=== PATIENT | male | born 1975 | race African-American/Black ===

== ENCOUNTER 2018-01-21 23:01 | Observation (INO) | payer SELFPAY ==
[~2018-01-21] VITALS: Ht 180.3 cm; Wt 72.8 kg
[2018-01-21 23:32] LABS: BASO % 0.6 % (0.0-2.0); EOS # 0.1 (0.0-0.7); EOS % 2.1 % (0-4.0); GRAN # 2.9 (1.4-6.5); GRAN % 62.2 % (42.2-75.2); HEMATOCRIT 37.3 % (42.0-52.0); HEMOGLOBIN 13.3 g/dl (13.5-18.0); LYMPH # 1.1 (1.2-3.4); LYMPH % 24.2 % (20.0-51.0); MEAN CELL VOLUME 84 fl (80.0-100.0); MEAN CORPUSCULAR HEMOGLOBIN 30 pg (27.0-31.0); MEAN CORPUSCULAR HGB CONC 36 g/dl (33.0-37.0); MEAN PLATELET VOLUME 9.9 fl (7.4-10.4); MONO # 0.5 (0.1-0.6); MONO % 10.7 % (1.7-9.3); PLATELET COUNT 248 K/mm3 (130-400); RED BLOOD COUNT 4.42 M/mm3 (4.20-5.60)
[2018-01-21 23:38] LABS: INR 0.9 (0.8-3.0); PROTHROMBIN TIME 10.4 SECONDS (9.7-12.8)
[2018-01-21 23:41] LABS: PARTIAL THROMBOPLASTIN TIME 33.4 SECONDS (26.0-37.0)
[2018-01-21 23:44] LABS: BILIRUBIN,TOTAL 0.8 mg/dL (0.0-1.0); CALCIUM 8.7 mg/dL (8.4-10.2); CREATININE, serum 0.83 mg/dL (0.66-1.25); MAGNESIUM 1.7 mg/dL (1.6-2.3); PHOSPHOROUS 3.6 mg/dL (2.5-4.5); POTASSIUM 3.4 mmol/L (3.4-5.0); TOTAL PROTEIN 7.3 gm/dL (6.4-8.2)
[2018-01-21 23:47] LABS: D-DIMER < 200.00 ng/mLDDu (200-230)
[2018-01-21 23:56] LABS: TROPONIN-I 0.022 ng/mL (0.000-0.034)
[2018-01-22] VITALS (10 sets, daily range): BP systolic 139–160; BP diastolic 94–110; PULSE 65–96; TEMP 97.8–98.7
[2018-01-22] LABS: PROLACTIN 7.6 ng/mL (3.7-17.9)
[2018-01-22 01:50] LABS: COLLECTION METHOD CLEAN CATCH
[2018-01-22 01:56] LABS: MUCOUS Present /lpf; PH 5 (5-8); SQUAMOUS EPITHELIAL 0-2 /hpf; URINE APPEARANCE Clear; URINE BACTERIA None Seen /hpf; URINE BILIRUBIN Negative (NEGATIVE); URINE BLOOD 1+ (NEGATIVE); URINE COLOR Yellow; URINE GLUCOSE Negative (NEGATIVE); URINE KETONE 1+ (NEGATIVE); URINE LEUKOCYTE ESTERASE Trace (NEGATIVE); URINE NITRATE Negative (NEGATIVE); URINE PROTEIN(semi-quant) 1+ (NEGATIVE); URINE RBC 0-2 /hpf; URINE UROBILINOGEN >=4.0 mg/dL (NEGATIVE)
[2018-01-22 02:03] LABS: TRICYCLIC ANTIDEPRESS URINE NEGATIVE
[2018-01-22 06:38] LABS: BASO % 0.9 % (0.0-2.0); EOS # 0.1 (0.0-0.7); EOS % 2.9 % (0-4.0); GRAN # 1.9 (1.4-6.5); GRAN % 42.8 % (42.2-75.2); HEMATOCRIT 37.4 % (42.0-52.0); HEMOGLOBIN 13.3 g/dl (13.5-18.0); LYMPH # 1.6 (1.2-3.4); LYMPH % 36.2 % (20.0-51.0); MEAN CELL VOLUME 84 fl (80.0-100.0); MEAN CORPUSCULAR HEMOGLOBIN 30 pg (27.0-31.0); MEAN CORPUSCULAR HGB CONC 36 g/dl (33.0-37.0); MEAN PLATELET VOLUME 10.7 fl (7.4-10.4); MONO # 0.8 (0.1-0.6); MONO % 17.2 % (1.7-9.3); PLATELET COUNT 251 K/mm3 (130-400); RED BLOOD COUNT 4.45 M/mm3 (4.20-5.60); REDCELL DISTRIBUTION WIDTH-CV 15.2 % (11.5-14.5)
[2018-01-22 06:48] LABS: CALCIUM 8.3 mg/dL (8.4-10.2); CHOLESTEROL RISK RATIO 2.9; CREATININE, serum 0.84 mg/dL (0.66-1.25); POTASSIUM 3.3 mmol/L (3.4-5.0)
[2018-01-22 06:59] LABS: TROPONIN-I 0.017 ng/mL (0.000-0.034)
[2018-01-23 07:49] VITALS: BP 154/104; PULSE 75; TEMP 98.9
[2018-01-23] MEDS ORDERED: PRINIVIL10 MG PO (10:50)
== END 2018-01-23 12:15 | disposition home or self-care (01) ==
LOC: COL.ER 23:01 → MEDICAL 01-22 00:31
PROVIDERS: Emergency Medicine; Nurse Practitioner Family
DX: R55 Syncope and collapse (principal); I10 Essential (primary) hypertension; I50.30 Unspecified diastolic (congestive) heart failure; E87.6 Hypokalemia; E86.0 Dehydration; E83.42 Hypomagnesemia; N39.0 Urinary tract infection, site not specified; Z79.82 Long term (current) use of aspirin; Z83.3 Family history of diabetes mellitus
CPT/HCPCS: 99223-AI; A9502; G0378; J0696; J1650; J2270; J2785; J3475; J3480; J7030

== ENCOUNTER 2018-12-11 10:50 | Emergency (ER) | payer SELFPAY ==
[~2018-12-11] VITALS: Ht 180.3 cm; Wt 79.5 kg
[~2018-12-11 10:50] MED LIST: PRINIVIL10 MG PO
[2018-12-11 10:53] VITALS: TEMP 98.6
[2018-12-11 11:19] LABS: BASO % 0.6 % (0.0-2.0); EOS # 0.1 (0.0-0.7); EOS % 0.8 % (0-4.0); GRAN # 4.7 (1.4-6.5); GRAN % 74.6 % (42.2-75.2); HEMATOCRIT 37.9 % (42.0-52.0); HEMOGLOBIN 13.1 g/dl (13.5-18.0); LYMPH # 0.9 (1.2-3.4); LYMPH % 14.6 % (20.0-51.0); MEAN CELL VOLUME 89 fl (80.0-100.0); MEAN CORPUSCULAR HEMOGLOBIN 31 pg (27.0-31.0); MEAN CORPUSCULAR HGB CONC 35 g/dl (33.0-37.0); MEAN PLATELET VOLUME 10.7 fl (7.4-10.4); MONO # 0.6 (0.1-0.6); MONO % 9.2 % (1.7-9.3); PLATELET COUNT 237 K/mm3 (130-400); RED BLOOD COUNT 4.25 M/mm3 (4.20-5.60); REDCELL DISTRIBUTION WIDTH-CV 15.1 % (11.5-14.5)
[2018-12-11 11:33] LABS: ALANINE AMINOTRANSFERASE 57 U/L (21-72); ALBUMIN 4.4 gm/dL (3.5-5.0); ALKALINE PHOSPHATASE 53 U/L (50-136); ANION GAP 12 mmol/L (7-16); AST,SGOT 114 U/L (15-37); BILIRUBIN,TOTAL 1.1 mg/dL (0.0-1.0); BLOOD UREA NITROGEN 12 mg/dL (9-20); CALCIUM 9.4 mg/dL (8.4-10.2); CARBON DIOXIDE 26 mmol/L (22-30); CHLORIDE 102 mmol/L (98-107); CREATININE, serum 0.75 (0.66-1.25); GLUCOSE 99 mg/dL (74-106); LIPASE 120 U/L (23-300); MAGNESIUM 1.5 mg/dL (1.6-2.3); POTASSIUM 4.3 mmol/L (3.4-5.0); SODIUM 141 mmol/L (137-145); TOTAL PROTEIN 8.1 gm/dL (6.4-8.2)
[2018-12-11 11:38] LABS: ALCOHOL(ethanol),MEDICAL < 10 mg/dL; C-REACTIVE PROTEIN < 0.5 mg/dL (0.0-0.9)
[2018-12-11 11:43] LABS: TROPONIN-I < 0.012 ng/mL (0.000-0.035)
[2018-12-11 12:26] LABS: TRICYCLIC ANTIDEPRESS URINE NEGATIVE
[2018-12-11 19:59] VITALS: BP 124/83; PULSE 90
== END 2018-12-11 20:14 | disposition short-term general hospital (02) ==
LOC: COL.ER 10:50
PROVIDERS: Emergency Medicine
DX: I77.79 Dissection of other specified artery (principal); R07.9 Chest pain, unspecified; F12.10 Cannabis abuse, uncomplicated
CPT/HCPCS: J3475; J7050; Q9967

== ENCOUNTER 2018-12-26 03:37 | Emergency (ER) | payer SELFPAY ==
[~2018-12-26] VITALS: Ht 180.3 cm; Wt 77.3 kg
[2018-12-26 03:58] LABS: BASO % 0.6 % (0.0-2.0); EOS # 0.1 (0.0-0.7); EOS % 2.3 % (0-4.0); GRAN # 3.1 (1.4-6.5); GRAN % 50.7 % (42.2-75.2); HEMATOCRIT 39.8 % (42.0-52.0); HEMOGLOBIN 13.8 g/dl (13.5-18.0); LYMPH % 33.1 % (20.0-51.0); MEAN CELL VOLUME 89 fl (80.0-100.0); MEAN CORPUSCULAR HEMOGLOBIN 31 pg (27.0-31.0); MEAN CORPUSCULAR HGB CONC 35 g/dl (33.0-37.0); MEAN PLATELET VOLUME 10.4 fl (7.4-10.4); MONO # 0.8 (0.1-0.6); PLATELET COUNT 242 K/mm3 (130-400); RED BLOOD COUNT 4.46 M/mm3 (4.20-5.60); REDCELL DISTRIBUTION WIDTH-CV 14.4 % (11.5-14.5)
[2018-12-26 04:09] LABS: ALANINE AMINOTRANSFERASE 44 U/L (21-72); ALBUMIN 4.6 gm/dL (3.5-5.0); ALCOHOL(ethanol),MEDICAL 117 mg/dL; ALKALINE PHOSPHATASE 62 U/L (50-136); ANION GAP 19 mmol/L (7-16); AST,SGOT 72 U/L (15-37); BILIRUBIN,TOTAL 0.3 mg/dL (0.0-1.0); BLOOD UREA NITROGEN 13 mg/dL (9-20); CARBON DIOXIDE 22 mmol/L (22-30); CHLORIDE 102 mmol/L (98-107); CREATININE, serum 0.97 (0.66-1.25); GLUCOSE 95 mg/dL (74-106); LIPASE 395 U/L (23-300); MAGNESIUM 1.9 mg/dL (1.6-2.3); SODIUM 143 mmol/L (137-145); TOTAL PROTEIN 8.5 gm/dL (6.4-8.2)
[2018-12-26 04:24] LABS: TROPONIN-I < 0.012 ng/mL (0.000-0.035)
[2018-12-26 07:30] VITALS: BP 152/93; PULSE 94; TEMP 97.8
[2018-12-26] MEDS ORDERED: MOBIC 7.5MG7.5 MG PO (07:32)
== END 2018-12-26 08:10 | disposition home or self-care (01) ==
LOC: COL.ER 03:37
PROVIDERS: Emergency Medicine
DX: R07.89 Other chest pain (principal); I10 Essential (primary) hypertension; Z87.891 Personal history of nicotine dependence

== ENCOUNTER 2019-10-10 05:38 | Emergency (ER) | payer SELFPAY ==
[~2019-10-10] VITALS: Ht 180.3 cm; Wt 81.8 kg
[~2019-10-10 05:38] MED LIST changes: +MOBIC 7.5MG7.5 MG PO
[2019-10-10 05:42] VITALS: TEMP 97.8
[2019-10-10 06:01] LABS: BASO # 0.1 (0.0-0.2); BASO % 0.7 % (0.0-2.0); EOS # 0.1 (0.0-0.7); EOS % 1.4 % (0-4.0); GRAN # 3.2 (1.4-6.5); GRAN % 44.2 % (42.2-75.2); HEMATOCRIT 41.9 % (42.0-52.0); HEMOGLOBIN 14.5 g/dl (13.5-18.0); LYMPH # 2.7 (1.2-3.4); MEAN CELL VOLUME 89 fl (80.0-100.0); MEAN CORPUSCULAR HEMOGLOBIN 31 pg (27.0-31.0); MEAN CORPUSCULAR HGB CONC 35 g/dl (33.0-37.0); MEAN PLATELET VOLUME 11.6 fl (7.4-10.4); MONO # 1.2 (0.1-0.6); PLATELET COUNT 205 K/mm3 (130-400); RED BLOOD COUNT 4.69 M/mm3 (4.20-5.60); REDCELL DISTRIBUTION WIDTH-CV 15.6 % (11.5-14.5)
[2019-10-10 06:08] LABS: ALKALINE PHOSPHATASE 78 U/L (50-136); ANION GAP 26 mmol/L (7-16); AST,SGOT 250 U/L (15-37); BILIRUBIN,TOTAL 0.8 mg/dL (0.0-1.0); BLOOD UREA NITROGEN 9 mg/dL (9-20); CALCIUM 9.7 mg/dL (8.4-10.2); CHLORIDE 97 mmol/L (98-107); CREATININE, serum 0.85 (0.66-1.25); GLUCOSE 131 mg/dL (74-106); POTASSIUM 3.7 mmol/L (3.4-5.0); SODIUM 137 mmol/L (137-145); TOTAL PROTEIN 9.1 gm/dL (6.4-8.2)
[2019-10-10 06:10] LABS: ALCOHOL(ethanol),MEDICAL < 10 mg/dL; CARBON DIOXIDE 14 mmol/L (22-30)
[2019-10-10 06:14] LABS: ALANINE AMINOTRANSFERASE 147 U/L (4-49)
[2019-10-10 06:59] LABS: ACETONE,SERUM NEGATIVE
[2019-10-10 07:29] LABS: OSMOLALITY-SERUM 296 Osm/kg (275-300)
[2019-10-10 08:10] LABS: ALBUMIN 4.2 gm/dL (3.5-5.0); BILIRUBIN,TOTAL 0.7 mg/dL (0.0-1.0); CALCIUM 8.8 mg/dL (8.4-10.2); CREATININE, serum 0.71 (0.66-1.25); POTASSIUM 4.2 mmol/L (3.4-5.0); TOTAL PROTEIN 7.7 gm/dL (6.4-8.2)
[2019-10-10 08:15] LABS: COLLECTION METHOD CLEAN CATCH
[2019-10-10 08:23] LABS: PROLACTIN 23.4 ng/mL (3.7-17.9)
[2019-10-10 08:33] LABS: AMORPHOUS CRYSTAL Present /uL; MUCOUS Present /lpf; PH 5 (5-8); SQUAMOUS EPITHELIAL 0-2 /hpf; URINE APPEARANCE Cloudy; URINE BACTERIA None Seen /hpf; URINE BILIRUBIN Negative (NEGATIVE); URINE BLOOD 3+ (NEGATIVE); URINE COLOR Yellow; URINE GLUCOSE Negative (NEGATIVE); URINE KETONE 1+ (NEGATIVE); URINE LEUKOCYTE ESTERASE Trace (NEGATIVE); URINE NITRATE Negative (NEGATIVE); URINE PROTEIN(semi-quant) 2+ (NEGATIVE); URINE RBC 0-2 /hpf; URINE UROBILINOGEN >=4.0 mg/dL (NEGATIVE)
[2019-10-10] MEDS ORDERED: OMNICEF 300MG300 MG PO (08:57)
[2019-10-10 09:11] LABS: TRICYCLIC ANTIDEPRESS URINE NEGATIVE
[2019-10-10 09:12] LABS: CREATINE KINASE 679 U/L (55-170)
[2019-10-10 09:15] LABS: SALICYLATE < 1.0 mg/dL
[2019-10-10] MEDS ORDERED: LIBRIUM 25M25 MG/CAP PO ×2 (09:17→10:17)
[2019-10-10 09:52] VITALS: BP 150/105; PULSE 88
== END 2019-10-10 10:34 | disposition home or self-care (01) ==
LOC: COL.ER 05:38
PROVIDERS: Emergency Medicine
DX: R56.9 Unspecified convulsions (principal)
CPT/HCPCS: J0696; J2060; J7030

== ENCOUNTER 2020-02-03 11:10 | Emergency (ER) | payer OTHER ==
[~2020-02-03] VITALS: Ht 180.3 cm; Wt 86.4 kg
[~2020-02-03 11:10] MED LIST changes: +LIBRIUM 25M25 MG/CAP PO; +OMNICEF 300MG300 MG PO
[2020-02-03 11:13] VITALS: BP 155/127; TEMP 97.8
[2020-02-03 11:26] LABS: BASO % 0.2 % (0.0-2.0); EOS % 0.2 % (0-4.0); GRAN % 71.4 % (42.2-75.2); HEMATOCRIT 38.1 % (42.0-52.0); HEMOGLOBIN 13.1 g/dl (13.5-18.0); LYMPH # 1.7 (1.2-3.4); LYMPH % 17.8 % (20.0-51.0); MEAN CELL VOLUME 91 fl (80.0-100.0); MEAN CORPUSCULAR HEMOGLOBIN 31 pg (27.0-31.0); MEAN CORPUSCULAR HGB CONC 34 g/dl (33.0-37.0); MEAN PLATELET VOLUME 10.4 fl (7.4-10.4); MONO % 9.8 % (1.7-9.3); PLATELET COUNT 184 K/mm3 (130-400); RED BLOOD COUNT 4.18 M/mm3 (4.20-5.60); REDCELL DISTRIBUTION WIDTH-CV 14.4 % (11.5-14.5)
[2020-02-03 11:35] LABS: ALBUMIN 4.1 gm/dL (3.5-5.0); BILIRUBIN,TOTAL 1.1 mg/dL (0.0-1.0); CREATININE, serum 0.7 (0.66-1.25); POTASSIUM 3.7 mmol/L (3.4-5.0); TOTAL PROTEIN 7.6 gm/dL (6.4-8.2)
[2020-02-03 11:51] LABS: PROLACTIN 73.7 ng/mL (3.7-17.9)
[2020-02-03] MEDS ORDERED: KEPPRA 500MG500 MG PO (14:42)
[2020-02-03 16:31] LABS: COLLECTION METHOD CLEAN CATCH
[2020-02-03 16:38] LABS: MUCOUS Present /lpf; PH 6 (5-8); SQUAMOUS EPITHELIAL 0-2 /hpf; URINE APPEARANCE Clear; URINE BACTERIA None Seen /hpf; URINE BILIRUBIN Negative (NEGATIVE); URINE BLOOD 1+ (NEGATIVE); URINE COLOR Yellow; URINE GLUCOSE 2+ (NEGATIVE); URINE KETONE 1+ (NEGATIVE); URINE LEUKOCYTE ESTERASE Negative (NEGATIVE); URINE NITRATE Negative (NEGATIVE); URINE PROTEIN(semi-quant) Negative (NEGATIVE); URINE RBC 0-2 /hpf; URINE UROBILINOGEN >=4.0 mg/dL (NEGATIVE)
[2020-02-03 16:49] LABS: TRICYCLIC ANTIDEPRESS URINE NEGATIVE
[2020-02-03 18:35] VITALS: PULSE 102
== END 2020-02-03 18:43 | disposition home or self-care (01) ==
LOC: COL.ER 11:10
PROVIDERS: Emergency Medicine; Family Medicine
DX: S01.81XA Laceration without foreign body of other part of head, initial encounter (principal); S06.320A Contusion and laceration of left cerebrum without loss of consciousness, initial encounter; R56.9 Unspecified convulsions; R40.2412 Glasgow coma scale score 13-15, at arrival to emergency department; F17.210 Nicotine dependence, cigarettes, uncomplicated; W06.XXXA Fall from bed, initial encounter; Y92.149 Unspecified place in prison as the place of occurrence of the external cause
CPT/HCPCS: J1200; J1790; J1953; J2250

== ENCOUNTER 2020-02-10 20:29 | Emergency (ER) | payer OTHER ==
[~2020-02-10] VITALS: Ht 180.3 cm; Wt 77.3 kg
[2020-02-10 20:36] VITALS: TEMP 98.1
[2020-02-10 21:19] VITALS: BP 133/84; PULSE 105
== END 2020-02-10 21:32 | disposition home or self-care (01) ==
LOC: COL.ER 20:29
DX: M75.102 Unspecified rotator cuff tear or rupture of left shoulder, not specified as traumatic (principal); S80.02XA Contusion of left knee, initial encounter; W06.XXXA Fall from bed, initial encounter

== ENCOUNTER → 2020-02-10 | Outpatient (CLI) | payer OTHER ==
[~2020-02-10] VITALS: Ht 180.3 cm; Wt 77.3 kg
[~2020-02-10] MED LIST changes: +KEPPRA 500MG500 MG PO
[2020-02-10 20:27] VITALS: PULSE 113; TEMP 98.1
== END ==
LOC: COL.ER 20:18
DX: S01.81XD Laceration without foreign body of other part of head, subsequent encounter (principal); M79.602 Pain in left arm; R56.9 Unspecified convulsions; W17.89XD Other fall from one level to another, subsequent encounter

== ENCOUNTER 2020-02-26 16:52 | Emergency (ER) | payer SELFPAY ==
[~2020-02-26] VITALS: Ht 180.3 cm; Wt 81.8 kg
[2020-02-26 17:03] VITALS: TEMP 98.2
[2020-02-26 18:12] LABS: BASO % 0.4 % (0.0-2.0); EOS # 0.2 (0.0-0.7); EOS % 3.1 % (0-4.0); GRAN # 2.4 (1.4-6.5); GRAN % 49.9 % (42.2-75.2); HEMOGLOBIN 10.9 g/dl (13.5-18.0); LYMPH # 1.6 (1.2-3.4); LYMPH % 33.7 % (20.0-51.0); MEAN CELL VOLUME 91 fl (80.0-100.0); MEAN CORPUSCULAR HEMOGLOBIN 31 pg (27.0-31.0); MEAN CORPUSCULAR HGB CONC 34 g/dl (33.0-37.0); MONO # 0.6 (0.1-0.6); MONO % 12.5 % (1.7-9.3); PLATELET COUNT 269 K/mm3 (130-400); RED BLOOD COUNT 3.49 M/mm3 (4.20-5.60); REDCELL DISTRIBUTION WIDTH-CV 15.2 % (11.5-14.5)
[2020-02-26 18:15] LABS: HEMATOCRIT 31.9 % (42.0-52.0)
[2020-02-26 18:32] LABS: ALBUMIN 3.7 gm/dL (3.5-5.0); BILIRUBIN,TOTAL 0.3 mg/dL (0.0-1.0); CALCIUM 8.3 mg/dL (8.4-10.2); CREATININE, serum 0.78 (0.66-1.25); POTASSIUM 3.2 mmol/L (3.4-5.0); TOTAL PROTEIN 6.9 gm/dL (6.4-8.2)
[2020-02-26 18:48] LABS: PROLACTIN 20.5 ng/mL (3.7-17.9)
[2020-02-26 19:24] VITALS: BP 121/81; PULSE 106
== END 2020-02-26 19:35 | disposition home or self-care (01) ==
LOC: COL.ER 16:52
PROVIDERS: Emergency Medicine
DX: R56.9 Unspecified convulsions (principal); M62.81 Muscle weakness (generalized)

== ENCOUNTER 2020-05-06 16:35 | Emergency (ER) | payer SELFPAY ==
[~2020-05-06] VITALS: Ht 180.3 cm; Wt 86.4 kg
[2020-05-06 16:52] VITALS: TEMP 98.1
[2020-05-06] MEDS ORDERED: KEPPRA 500MG500 MG PO (18:35)
[2020-05-06 18:47] VITALS: BP 133/92; PULSE 88
== END 2020-05-06 19:00 | disposition home or self-care (01) ==
LOC: COL.ER 16:35
DX: G40.909 Epilepsy, unspecified, not intractable, without status epilepticus (principal); Z79.2 Long term (current) use of antibiotics

== ENCOUNTER 2020-07-08 00:45 | Emergency (ER) | payer SELFPAY ==
[~2020-07-08] VITALS: Ht 180.3 cm; Wt 81.8 kg
[2020-07-08 00:46] VITALS: TEMP 98.3
[2020-07-08 01:03] LABS: BASO % 0.5 % (0.0-2.0); EOS % 0.7 % (0-4.0); GRAN # 3.3 (1.4-6.5); GRAN % 57.3 % (42.2-75.2); HEMATOCRIT 32.2 % (42.0-52.0); HEMOGLOBIN 11.5 g/dl (13.5-18.0); LYMPH # 1.5 (1.2-3.4); LYMPH % 27.1 % (20.0-51.0); MEAN CELL VOLUME 87 fl (80.0-100.0); MEAN CORPUSCULAR HEMOGLOBIN 31 pg (27.0-31.0); MEAN CORPUSCULAR HGB CONC 36 g/dl (33.0-37.0); MEAN PLATELET VOLUME 11.5 fl (7.4-10.4); MONO # 0.8 (0.1-0.6); MONO % 13.9 % (1.7-9.3); PLATELET COUNT 167 K/mm3 (130-400); REDCELL DISTRIBUTION WIDTH-CV 14.6 % (11.5-14.5)
[2020-07-08 01:16] LABS: ALBUMIN 4.1 gm/dL (3.5-5.0); BILIRUBIN,TOTAL 0.5 mg/dL (0.0-1.0); C-REACTIVE PROTEIN 0.6 mg/dL (0.0-0.9); CALCIUM 8.8 mg/dL (8.4-10.2); CREATININE, serum 0.89 (0.66-1.25); POTASSIUM 4.2 mmol/L (3.4-5.0); TOTAL PROTEIN 7.5 gm/dL (6.4-8.2)
[2020-07-08 01:29] LABS: PROLACTIN 16.9 ng/mL (3.7-17.9)
[2020-07-08 03:24] VITALS: BP 126/78; PULSE 80
== END 2020-07-08 03:24 | disposition home or self-care (01) ==
LOC: COL.ER 00:45
PROVIDERS: Nurse Practitioner
DX: G40.409 Other generalized epilepsy and epileptic syndromes, not intractable, without status epilepticus (principal); Z91.14 Patient's other noncompliance with medication regimen
CPT/HCPCS: J1953; J7030

== ENCOUNTER 2020-08-22 19:57 | Emergency (ER) | payer SELFPAY ==
[~2020-08-22] VITALS: Ht 180.3 cm; Wt 77.3 kg
[2020-08-22] MEDS ORDERED: FIRST-MOUTHWASH1 KIT PO (22:11)
[2020-08-22 22:17] VITALS: BP 149/89; PULSE 94; TEMP 98.2
== END 2020-08-22 22:18 | disposition home or self-care (01) ==
LOC: COL.ER 19:57
DX: S01.512A Laceration without foreign body of oral cavity, initial encounter (principal); R56.9 Unspecified convulsions; R00.0 Tachycardia, unspecified; F17.210 Nicotine dependence, cigarettes, uncomplicated; Z91.14 Patient's other noncompliance with medication regimen; X58.XXXA Exposure to other specified factors, initial encounter

== ENCOUNTER 2020-10-06 11:18 | Emergency (ER) | payer SELFPAY ==
[~2020-10-06] VITALS: Ht 180.3 cm; Wt 81.8 kg
[~2020-10-06 11:18] MED LIST changes: +FIRST-MOUTHWASH1 KIT PO
[2020-10-06 11:28] VITALS: TEMP 97.9
[2020-10-06 11:46] LABS: BASO # 0.1 (0.0-0.2); BASO % 0.7 % (0.0-2.0); EOS # 0.1 (0.0-0.7); EOS % 0.8 % (0-4.0); GRAN # 4.4 (1.4-6.5); GRAN % 61.2 % (42.2-75.2); HEMATOCRIT 35.5 % (42.0-52.0); HEMOGLOBIN 12.2 g/dl (13.5-18.0); LYMPH # 1.6 (1.2-3.4); LYMPH % 22.7 % (20.0-51.0); MEAN CELL VOLUME 90 fl (80.0-100.0); MEAN CORPUSCULAR HEMOGLOBIN 31 pg (27.0-31.0); MEAN CORPUSCULAR HGB CONC 34 g/dl (33.0-37.0); MEAN PLATELET VOLUME 10.2 fl (7.4-10.4); MONO % 14.2 % (1.7-9.3); PLATELET COUNT 241 K/mm3 (130-400); RED BLOOD COUNT 3.94 M/mm3 (4.20-5.60); REDCELL DISTRIBUTION WIDTH-CV 17.4 % (11.5-14.5)
[2020-10-06 11:53] LABS: INR 0.9 (0.8-3.0); PROTHROMBIN TIME 9.7 SECONDS (9.7-12.8)
[2020-10-06 11:56] LABS: ALANINE AMINOTRANSFERASE 92 U/L (4-49); ALBUMIN 4.2 gm/dL (3.5-5.0); ALKALINE PHOSPHATASE 72 U/L (50-136); ANION GAP 17 mmol/L (7-16); AST,SGOT 280 U/L (15-37); BILIRUBIN,TOTAL 0.5 mg/dL (0.0-1.0); BLOOD UREA NITROGEN 10 mg/dL (9-20); CARBON DIOXIDE 21 mmol/L (22-30); CHLORIDE 100 mmol/L (98-107); GLUCOSE 114 mg/dL (74-106); PARTIAL THROMBOPLASTIN TIME 32.9 SECONDS (26.0-37.0); SODIUM 138 mmol/L (137-145); TOTAL PROTEIN 8.1 gm/dL (6.4-8.2)
[2020-10-06 12:09] LABS: TROPONIN-I < 0.012 ng/mL (0.000-0.035)
[2020-10-06 12:12] LABS: ALCOHOL(ethanol),MEDICAL 409 mg/dL
[2020-10-06 13:45] VITALS: BP 132/77; PULSE 90
[2020-10-06 14:15] LABS: TRICYCLIC ANTIDEPRESS URINE NEGATIVE
== END 2020-10-06 21:15 | disposition home or self-care (01) ==
LOC: COL.ER 11:18
PROVIDERS: Emergency Medicine
DX: G40.909 Epilepsy, unspecified, not intractable, without status epilepticus (principal); F10.129 Alcohol abuse with intoxication, unspecified; F17.210 Nicotine dependence, cigarettes, uncomplicated
CPT/HCPCS: J7030; Q9967

== ENCOUNTER 2020-11-21 09:20 | Emergency (ER) | payer SELFPAY ==
[~2020-11-21] VITALS: Ht 180.3 cm; Wt 81.8 kg
[2020-11-21 09:21] VITALS: TEMP 98.7
[2020-11-21 10:33] LABS: BASO % 0.4 % (0.0-2.0); EOS % 0.1 % (0-4.0); GRAN # 5.4 (1.4-6.5); HEMOGLOBIN 11.6 g/dl (13.5-18.0); LYMPH # 0.5 (1.2-3.4); MEAN CELL VOLUME 90 fl (80.0-100.0); MEAN CORPUSCULAR HEMOGLOBIN 30 pg (27.0-31.0); MEAN CORPUSCULAR HGB CONC 34 g/dl (33.0-37.0); MEAN PLATELET VOLUME 10.2 fl (7.4-10.4); MONO % 14.2 % (1.7-9.3); PLATELET COUNT 192 K/mm3 (130-400); RED BLOOD COUNT 3.82 M/mm3 (4.20-5.60)
[2020-11-21 10:40] LABS: HEMATOCRIT 34.4 % (42.0-52.0)
[2020-11-21 10:45] LABS: ALANINE AMINOTRANSFERASE 81 U/L (4-49); ALBUMIN 3.9 gm/dL (3.5-5.0); ALCOHOL(ethanol),MEDICAL < 10 mg/dL; ALKALINE PHOSPHATASE 82 U/L (50-136); ANION GAP 10 mmol/L (7-16); AST,SGOT 181 U/L (15-37); BILIRUBIN,TOTAL 0.9 mg/dL (0.0-1.0); BLOOD UREA NITROGEN 12 mg/dL (9-20); CALCIUM 9.1 mg/dL (8.4-10.2); CARBON DIOXIDE 21 mmol/L (22-30); CHLORIDE 102 mmol/L (98-107); CREATININE, serum 0.67 (0.66-1.25); GLUCOSE 119 mg/dL (74-106); MAGNESIUM 1.6 mg/dL (1.6-2.3); POTASSIUM 4.2 mmol/L (3.4-5.0); SODIUM 133 mmol/L (137-145); TOTAL PROTEIN 7.5 gm/dL (6.4-8.2)
[2020-11-21] MEDS ORDERED: VISTARIL50 MG PO (11:03)
[2020-11-21 11:04] VITALS: BP 152/109; PULSE 97
[2020-11-21 11:17] LABS: PROLACTIN 4.9 ng/mL (3.7-17.9)
== END 2020-11-21 11:25 | disposition home or self-care (01) ==
LOC: COL.ER 09:20
PROVIDERS: Emergency Medicine
DX: L75.0 Bromhidrosis (principal); G93.40 Encephalopathy, unspecified; M62.838 Other muscle spasm; G40.909 Epilepsy, unspecified, not intractable, without status epilepticus; Z87.891 Personal history of nicotine dependence
CPT/HCPCS: J1200; J2060

== ENCOUNTER 2021-02-09 13:13 | Emergency (ER) | payer SELFPAY ==
[~2021-02-09] VITALS: Ht 180.3 cm; Wt 86.4 kg
[~2021-02-09 13:13] MED LIST changes: +VISTARIL50 MG PO
[2021-02-09 13:15] VITALS: BP 130/85; PULSE 90; TEMP 98.9
[2021-02-09] MEDS ORDERED: MOBIC 7.5MG7.5 MG PO (19:04)
== END 2021-02-09 15:15 | disposition home or self-care (01) ==
LOC: COL.ER 13:13
DX: M25.562 Pain in left knee (principal); I10 Essential (primary) hypertension; F17.210 Nicotine dependence, cigarettes, uncomplicated; Z98.890 Other specified postprocedural states

== ENCOUNTER 2021-02-26 13:52 | Emergency (ER) | payer SELFPAY ==
[~2021-02-26] VITALS: Ht 180.3 cm; Wt 81.8 kg
[2021-02-26 13:56] VITALS: TEMP 97.7
[2021-02-26 14:15] LABS: BASO % 0.8 % (0.0-2.0); EOS % 0.3 % (0-4.0); GRAN # 2.7 (1.4-6.5); GRAN % 68.2 % (42.2-75.2); HEMOGLOBIN 11.1 g/dl (13.5-18.0); LYMPH # 0.7 (1.2-3.4); LYMPH % 18.1 % (20.0-51.0); MEAN CELL VOLUME 83 fl (80.0-100.0); MEAN CORPUSCULAR HEMOGLOBIN 30 pg (27.0-31.0); MEAN CORPUSCULAR HGB CONC 36 g/dl (33.0-37.0); MEAN PLATELET VOLUME 12.1 fl (7.4-10.4); MONO # 0.5 (0.1-0.6); MONO % 12.1 % (1.7-9.3); PLATELET COUNT 113 K/mm3 (130-400); REDCELL DISTRIBUTION WIDTH-CV 14.6 % (11.5-14.5)
[2021-02-26 14:17] LABS: HEMATOCRIT 30.8 % (42.0-52.0)
[2021-02-26 14:34] LABS: ALBUMIN 3.3 gm/dL (3.5-5.0); BILIRUBIN,TOTAL 0.8 mg/dL (0.2-1.2); C-REACTIVE PROTEIN 0.4 mg/dL (0.00-0.50); CALCIUM 8.3 mg/dL (8.4-10.2); CREATININE, serum 0.75 mg/dL (0.72-1.25)
[2021-02-26 14:53] LABS: PROLACTIN 9.3 ng/mL (3.46-19.40)
[2021-02-26 17:01] LABS: COLLECTION METHOD CLEAN CATCH
[2021-02-26 17:20] LABS: MUCOUS Present /lpf; PH 6 (5-8); SQUAMOUS EPITHELIAL 0-2 /hpf; URINE APPEARANCE Hazy; URINE BACTERIA None Seen /hpf; URINE BILIRUBIN Negative (NEGATIVE); URINE BLOOD 1+ (NEGATIVE); URINE COLOR Yellow; URINE GLUCOSE Negative (NEGATIVE); URINE KETONE Negative (NEGATIVE); URINE LEUKOCYTE ESTERASE 2+ (NEGATIVE); URINE NITRATE Negative (NEGATIVE); URINE PROTEIN(semi-quant) 1+ (NEGATIVE); URINE RBC 0-2 /hpf; URINE UROBILINOGEN >=4.0 mg/dL (NEGATIVE)
[2021-02-26 17:36] VITALS: BP 110/80; PULSE 97
[2021-02-26 18:40] LABS: HEMOGLOBIN 10.8 g/dl (13.5-18.0)
[2021-02-26 18:42] LABS: HEMATOCRIT 30.2 % (42.0-52.0)
[2021-02-26] MEDS ORDERED: OMNICEF 300MG300 MG PO (19:10)
== END 2021-02-26 17:36 | disposition home or self-care (01) ==
LOC: COL.ER 13:52
PROVIDERS: Family Medicine; Nurse Practitioner Primary Care
DX: K29.20 Alcoholic gastritis without bleeding (principal); F10.20 Alcohol dependence, uncomplicated; I10 Essential (primary) hypertension; Y90.8 Blood alcohol level of 240 mg/100 ml or more
CPT/HCPCS: C9113; J0696; J7120

== ENCOUNTER 2021-03-15 01:54 | Emergency (ER) | payer SELFPAY ==
[~2021-03-15] VITALS: Ht 180.3 cm; Wt 81.8 kg
[2021-03-15 01:55] VITALS: TEMP 97.7
[2021-03-15 02:32] LABS: BASO # 0.1 K/mm3 (0.0-0.2); BASO % 1.2 % (0.0-2.0); EOS # 0.1 K/mm3 (0.0-0.7); EOS % 1.4 % (0-4.0); GRAN # 2.9 K/mm3 (1.4-6.5); GRAN % 59.8 % (42.2-75.2); HEMOGLOBIN 11.5 g/dl (13.5-18.0); LYMPH # 1.3 K/mm3 (1.2-3.4); LYMPH % 26.3 % (20.0-51.0); MEAN CELL VOLUME 89 fl (80.0-100.0); MEAN CORPUSCULAR HEMOGLOBIN 30 pg (27.0-31.0); MEAN CORPUSCULAR HGB CONC 34 g/dl (33.0-37.0); MONO # 0.5 K/mm3 (0.1-0.6); MONO % 11.1 % (1.7-9.3); PLATELET COUNT 252 K/mm3 (130-400); RED BLOOD COUNT 3.78 M/mm3 (4.20-5.60); REDCELL DISTRIBUTION WIDTH-CV 19.4 % (11.5-14.5)
[2021-03-15 02:33] LABS: HEMATOCRIT 33.7 % (42.0-52.0)
[2021-03-15 02:50] LABS: ALANINE AMINOTRANSFERASE 29 U/L (0-55); ALBUMIN 3.6 gm/dL (3.5-5.0); ALKALINE PHOSPHATASE 56 U/L (0-750); ANION GAP 19 mmol/L (7-16); AST,SGOT 78 U/L (5-34); BILIRUBIN,TOTAL 0.9 mg/dL (0.2-1.2); BLOOD UREA NITROGEN 4 mg/dL (9-21); CALCIUM 9.6 mg/dL (8.4-10.2); CARBON DIOXIDE 22 mmol/L (22-29); CHLORIDE 100 mmol/L (98-107); CREATININE, serum 0.84 mg/dL (0.72-1.25); GLUCOSE 158 mg/dL (70-99); POTASSIUM 3.4 mmol/L (3.5-4.5); SODIUM 141 mmol/L (136-145)
[2021-03-15 04:50] LABS: COLLECTION METHOD CLEAN CATCH
[2021-03-15 04:59] LABS: MUCOUS Present /lpf; PH 6 (5-8); SQUAMOUS EPITHELIAL 0-2 /hpf; URINE APPEARANCE Hazy; URINE BACTERIA None Seen /hpf; URINE BILIRUBIN Negative (NEGATIVE); URINE BLOOD 1+ (NEGATIVE); URINE COLOR Yellow; URINE GLUCOSE 1+ (NEGATIVE); URINE KETONE 1+ (NEGATIVE); URINE LEUKOCYTE ESTERASE 1+ (NEGATIVE); URINE NITRATE Negative (NEGATIVE); URINE PROTEIN(semi-quant) 2+ (NEGATIVE); URINE UROBILINOGEN >=4.0 mg/dL (NEGATIVE)
[2021-03-15 05:19] LABS: TRICYCLIC ANTIDEPRESS URINE NEGATIVE
[2021-03-15 07:40] VITALS: BP 150/70; PULSE 98
[2021-03-15 10:03] LABS: ACETAMINOPHEN < 1 ug/mL (10-30); ALCOHOL(ethanol),MEDICAL < 10 mg/dL; SALICYLATE < 5.0 mg/dL
== END 2021-03-15 07:40 | disposition home or self-care (01) ==
LOC: COL.ER 01:54
PROVIDERS: Emergency Medicine Emergency Medical Services
DX: G40.909 Epilepsy, unspecified, not intractable, without status epilepticus (principal); D64.9 Anemia, unspecified; E87.6 Hypokalemia; Z79.899 Other long term (current) drug therapy
CPT/HCPCS: J1953; J2060

== ENCOUNTER 2021-04-02 10:22 | Emergency (ER) | payer SELFPAY ==
[~2021-04-02] VITALS: Ht 180.3 cm; Wt 81.8 kg
[2021-04-02 10:22] VITALS: TEMP 99.7
[2021-04-02 10:37] LABS: BASO % 0.3 % (0.0-2.0); GRAN # 6.3 K/mm3 (1.4-6.5); GRAN % 83.4 % (42.2-75.2); HEMOGLOBIN 11.2 g/dl (13.5-18.0); LYMPH # 0.3 K/mm3 (1.2-3.4); MEAN CELL VOLUME 88 fl (80.0-100.0); MEAN CORPUSCULAR HEMOGLOBIN 31 pg (27.0-31.0); MEAN CORPUSCULAR HGB CONC 35 g/dl (33.0-37.0); MEAN PLATELET VOLUME 10.8 fl (7.4-10.4); MONO # 0.9 K/mm3 (0.1-0.6); MONO % 11.8 % (1.7-9.3); PLATELET COUNT 241 K/mm3 (130-400); RED BLOOD COUNT 3.61 M/mm3 (4.20-5.60); REDCELL DISTRIBUTION WIDTH-CV 16.3 % (11.5-14.5)
[2021-04-02 10:43] LABS: HEMATOCRIT 31.7 % (42.0-52.0)
[2021-04-02 10:46] LABS: ACETONE,SERUM NEGATIVE
[2021-04-02 10:55] LABS: ALANINE AMINOTRANSFERASE 79 U/L (0-55); ALBUMIN 3.2 gm/dL (3.5-5.0); ALKALINE PHOSPHATASE 72 U/L (40-150); ANION GAP 20 mmol/L (7-16); AST,SGOT 194 U/L (5-34); BILIRUBIN,TOTAL 0.8 mg/dL (0.2-1.2); BLOOD UREA NITROGEN 7 mg/dL (9-21); C-REACTIVE PROTEIN 1.13 mg/dL (0.00-0.50); CALCIUM 8.8 mg/dL (8.4-10.2); CARBON DIOXIDE 23 mmol/L (22-29); CHLORIDE 95 mmol/L (98-107); GLUCOSE 171 mg/dL (70-99); POTASSIUM 3.8 mmol/L (3.5-4.5); SODIUM 138 mmol/L (136-145); TOTAL PROTEIN 7.3 gm/dL (6.2-8.1)
[2021-04-02 11:57] LABS: PROTHROMBIN TIME 11.2 SECONDS (9.7-12.8)
[2021-04-02 12:41] LABS: TRICYCLIC ANTIDEPRESS URINE NEGATIVE
[2021-04-02 14:02] VITALS: BP 130/99; PULSE 105
[2021-04-02] MEDS ORDERED: KEPPRA 500MG500 MG PO (16:54)
== END 2021-04-02 14:04 | disposition home or self-care (01) ==
LOC: COL.ER 10:22
PROVIDERS: Family Medicine
DX: G40.909 Epilepsy, unspecified, not intractable, without status epilepticus (principal); I10 Essential (primary) hypertension; Z79.899 Other long term (current) drug therapy
CPT/HCPCS: J1885; J1953

== ENCOUNTER 2021-04-19 11:43 | Emergency (ER) | payer SELFPAY ==
[~2021-04-19] VITALS: Ht 180.3 cm; Wt 81.8 kg
[2021-04-19 11:44] VITALS: TEMP 98.2
[2021-04-19 12:51] VITALS: BP 116/88; PULSE 89
== END 2021-04-19 12:52 | disposition home or self-care (01) ==
LOC: COL.ER 11:43
DX: G89.29 Other chronic pain (principal); M79.662 Pain in left lower leg; F17.200 Nicotine dependence, unspecified, uncomplicated; Z86.69 Personal history of other diseases of the nervous system and sense organs; Z86.73 Personal history of transient ischemic attack (TIA), and cerebral infarction without residual deficits
CPT/HCPCS: J1885

== ENCOUNTER 2021-05-13 19:42 | Emergency (ER) | payer SELFPAY ==
[~2021-05-13] VITALS: Ht 180.3 cm; Wt 81.8 kg
[2021-05-13 21:03] LABS: BASO # 0.1 K/mm3 (0.0-0.2); BASO % 1.4 % (0.0-2.0); EOS # 0.2 K/mm3 (0.0-0.7); EOS % 3.9 % (0-4.0); GRAN # 2.1 K/mm3 (1.4-6.5); GRAN % 47.3 % (42.2-75.2); HEMATOCRIT 37.6 % (42.0-52.0); HEMOGLOBIN 12.5 g/dl (13.5-18.0); LYMPH # 1.6 K/mm3 (1.2-3.4); LYMPH % 36.3 % (20.0-51.0); MEAN CELL VOLUME 95 fl (80.0-100.0); MEAN CORPUSCULAR HEMOGLOBIN 32 pg (27.0-31.0); MEAN CORPUSCULAR HGB CONC 33 g/dl (33.0-37.0); MEAN PLATELET VOLUME 10.7 fl (7.4-10.4); MONO # 0.5 K/mm3 (0.1-0.6); MONO % 10.9 % (1.7-9.3); PLATELET COUNT 213 K/mm3 (130-400); RED BLOOD COUNT 3.97 M/mm3 (4.20-5.60); REDCELL DISTRIBUTION WIDTH-CV 15.8 % (11.5-14.5)
[2021-05-13 21:17] LABS: ALBUMIN 3.7 gm/dL (3.5-5.0); BILIRUBIN,TOTAL 0.4 mg/dL (0.2-1.2); POTASSIUM 3.7 mmol/L (3.5-4.5); TOTAL PROTEIN 7.7 gm/dL (6.2-8.1)
[2021-05-13 21:59] LABS: CREATININE, serum 0.83 mg/dL (0.72-1.25)
[2021-05-13 23:41] VITALS: BP 136/64; PULSE 88; TEMP 98.4
== END 2021-05-13 23:42 | disposition home or self-care (01) ==
LOC: COL.ER 19:42
PROVIDERS: Physician Assistant
DX: S80.211A Abrasion, right knee, initial encounter (principal); F10.129 Alcohol abuse with intoxication, unspecified; G40.909 Epilepsy, unspecified, not intractable, without status epilepticus; Y90.8 Blood alcohol level of 240 mg/100 ml or more; Z79.899 Other long term (current) drug therapy; V19.9XXA Pedal cyclist (driver) (passenger) injured in unspecified traffic accident, initial encounter

== ENCOUNTER 2021-05-18 12:44 | Emergency (ER) | payer SELFPAY ==
[~2021-05-18] VITALS: Ht 180.3 cm; Wt 81.8 kg
[2021-05-18 13:30] VITALS: BP 126/64; PULSE 75; TEMP 97.4
== END 2021-05-18 13:50 | disposition home or self-care (01) ==
LOC: COL.ER 12:44
DX: M25.562 Pain in left knee (principal); F17.200 Nicotine dependence, unspecified, uncomplicated; Z86.73 Personal history of transient ischemic attack (TIA), and cerebral infarction without residual deficits; Z86.69 Personal history of other diseases of the nervous system and sense organs

== ENCOUNTER 2021-06-10 11:26 | Emergency (ER) | payer SELFPAY ==
[~2021-06-10] VITALS: Ht 180.3 cm; Wt 81.8 kg
[2021-06-10 11:31] VITALS: TEMP 98.1
[2021-06-10] MEDS ORDERED: NAPROSYN500 MG PO (12:15)
[2021-06-10 12:39] VITALS: BP 170/80; PULSE 80
== END 2021-06-10 12:39 | disposition home or self-care (01) ==
LOC: COL.ER 11:26
DX: M25.562 Pain in left knee (principal); R60.0 Localized edema; G40.909 Epilepsy, unspecified, not intractable, without status epilepticus; Z98.890 Other specified postprocedural states; Z79.899 Other long term (current) drug therapy

== ENCOUNTER 2021-06-30 08:50 | Emergency (ER) | payer SELFPAY ==
[~2021-06-30] VITALS: Ht 180.3 cm; Wt 84.1 kg
[~2021-06-30 08:50] MED LIST changes: +NAPROSYN500 MG PO
[2021-06-30 08:55] VITALS: PULSE 88; TEMP 96.6
[2021-06-30] MEDS ORDERED: MOTRIN 800800 MG/TAB PO (10:06)
[2021-06-30 11:40] VITALS: BP 128/90
== END 2021-06-30 11:48 | disposition home or self-care (01) ==
LOC: COL.ER 08:50
DX: S83.92XA Sprain of unspecified site of left knee, initial encounter (principal); F10.129 Alcohol abuse with intoxication, unspecified; Z98.890 Other specified postprocedural states; W19.XXXA Unspecified fall, initial encounter

== ENCOUNTER 2021-09-02 23:38 | Emergency (ER) | payer SELFPAY ==
[~2021-09-02] VITALS: Ht 180.3 cm; Wt 86.4 kg
[~2021-09-02 23:38] MED LIST changes: +MOTRIN 800800 MG/TAB PO
[2021-09-03 01:26] VITALS: BP 122/84; PULSE 78; TEMP 98
== END 2021-09-03 01:27 | disposition home or self-care (01) ==
LOC: COL.ER 23:38
DX: G89.29 Other chronic pain (principal); M25.562 Pain in left knee; F10.229 Alcohol dependence with intoxication, unspecified

== ENCOUNTER 2022-07-11 22:09 | Emergency (ER) | payer SELFPAY ==
[~2022-07-11] VITALS: Ht 182.9 cm; Wt 86.4 kg
[~2022-07-11 22:09] MED LIST changes: +ASPIRIN 81M81 MG/TA2 PO; +COMPLETE MULTI1 TAB PO; +KEPPRA1000 MG PO; +LIPITOR 40MG TA40 MG PO; +THIAMINE 1100 MG/TAB PO
[2022-07-11 22:37] LABS: BASO # 0.1 K/mm3 (0.0-0.2); BASO % 1.3 % (0.0-2.0); EOS # 0.1 K/mm3 (0.0-0.7); EOS % 1.2 % (0.0-4.0); GRAN # 2.8 K/mm3 (1.4-6.5); GRAN % 46.4 % (42.2-75.2); HEMOGLOBIN 11.5 g/dl (13.5-18.0); LYMPH # 2.4 K/mm3 (1.2-3.4); LYMPH % 39.7 % (20.0-51.0); MEAN CELL VOLUME 88 fl (80.0-100.0); MEAN CORPUSCULAR HEMOGLOBIN 30 pg (27-31); MEAN CORPUSCULAR HGB CONC 34 g/dl (33.0-37.0); MEAN PLATELET VOLUME 10.3 fl (7.4-10.4); MONO # 0.7 K/mm3 (0.1-0.6); MONO % 11.2 % (1.7-9.3); PLATELET COUNT 246 K/mm3 (130-400); RED BLOOD COUNT 3.81 M/mm3 (4.20-5.60); REDCELL DISTRIBUTION WIDTH-CV 18.6 % (11.5-14.5)
[2022-07-11 22:48] LABS: HEMATOCRIT 33.4 % (42.0-52.0)
[2022-07-11 22:59] LABS: ALBUMIN 3.6 gm/dL (3.5-5.0); BILIRUBIN,TOTAL 0.3 mg/dL (0.2-1.2); CALCIUM 8.7 mg/dL (8.4-10.2); CREATININE, serum 0.75 mg/dL (0.72-1.25); POTASSIUM 3.4 mmol/L (3.5-4.5); TOTAL PROTEIN 7.2 gm/dL (6.2-8.1)
[2022-07-12 03:54] VITALS: TEMP 97.2
[2022-07-12 06:35] VITALS: BP 119/74; PULSE 86
== END 2022-07-12 06:35 | disposition home or self-care (01) ==
LOC: COL.ER 22:09
PROVIDERS: Family Medicine
DX: F10.129 Alcohol abuse with intoxication, unspecified (principal); Z28.310 Unvaccinated for COVID-19
CPT/HCPCS: J2405; J7030

== ENCOUNTER 2022-08-06 15:04 | Emergency (ER) | payer SELFPAY ==
[~2022-08-06] VITALS: Ht 180.3 cm; Wt 50.0 kg
[2022-08-06 15:07] VITALS: TEMP 97.2
[2022-08-06 15:49] LABS: BASO # 0.1 K/mm3 (0.0-0.2); EOS # 0.1 K/mm3 (0.0-0.7); GRAN # 3.3 K/mm3 (1.4-6.5); GRAN % 54.9 % (42.2-75.2); HEMATOCRIT 35.8 % (42.0-52.0); HEMOGLOBIN 12.6 g/dl (13.5-18.0); LYMPH # 1.7 K/mm3 (1.2-3.4); MEAN CELL VOLUME 86 fl (80.0-100.0); MEAN CORPUSCULAR HEMOGLOBIN 30 pg (27-31); MEAN CORPUSCULAR HGB CONC 35 g/dl (33.0-37.0); MEAN PLATELET VOLUME 10.8 fl (7.4-10.4); MONO # 0.9 K/mm3 (0.1-0.6); MONO % 14.6 % (1.7-9.3); PLATELET COUNT 201 K/mm3 (130-400); RED BLOOD COUNT 4.16 M/mm3 (4.20-5.60); REDCELL DISTRIBUTION WIDTH-CV 16.2 % (11.5-14.5)
[2022-08-06 16:11] LABS: ALBUMIN 3.5 gm/dL (3.5-5.0); BILIRUBIN,TOTAL 0.7 mg/dL (0.2-1.2); CALCIUM 8.5 mg/dL (8.4-10.2); CREATININE, serum 0.72 mg/dL (0.72-1.25); POTASSIUM 4.2 mmol/L (3.5-4.5); TOTAL PROTEIN 7.6 gm/dL (6.2-8.1)
[2022-08-06 19:40] VITALS: BP 137/88; PULSE 76
== END 2022-08-06 19:45 | disposition home or self-care (01) ==
LOC: COL.ER 15:04
PROVIDERS: Emergency Medicine
DX: S02.5XXA Fracture of tooth (traumatic), initial encounter for closed fracture (principal); S01.511A Laceration without foreign body of lip, initial encounter; R56.9 Unspecified convulsions; Z28.310 Unvaccinated for COVID-19; W10.9XXA Fall (on) (from) unspecified stairs and steps, initial encounter
CPT/HCPCS: J1953

== ENCOUNTER 2022-09-04 11:04 | Emergency (ER) | payer SELFPAY ==
[~2022-09-04] VITALS: Ht 180.3 cm; Wt 54.1 kg
[2022-09-04 11:26] VITALS: TEMP 98.3
[2022-09-04 13:36] VITALS: BP 144/92; PULSE 94
== END 2022-09-04 13:37 | disposition home or self-care (01) ==
LOC: COL.ER 11:04
DX: R07.81 Pleurodynia (principal); F17.210 Nicotine dependence, cigarettes, uncomplicated; Z28.310 Unvaccinated for COVID-19

== ENCOUNTER 2022-10-11 12:21 | Emergency (ER) | payer SELFPAY ==
[~2022-10-11] VITALS: Ht 180.3 cm; Wt 86.4 kg
[2022-10-11 12:22] VITALS: TEMP 98.4
[2022-10-11 14:35] VITALS: BP 172/125; PULSE 92
== END 2022-10-11 14:35 | disposition home or self-care (01) ==
LOC: COL.ER 12:21
DX: G40.909 Epilepsy, unspecified, not intractable, without status epilepticus (principal); Z79.899 Other long term (current) drug therapy; Z28.310 Unvaccinated for COVID-19
CPT/HCPCS: J1953

== ENCOUNTER 2022-11-01 14:17 | Emergency (ER) | payer SELFPAY ==
[~2022-11-01] VITALS: Ht 180.3 cm; Wt 81.8 kg
[2022-11-01 14:16] VITALS: TEMP 97.9
[2022-11-01 15:25] LABS: BASO # 0.1 K/mm3 (0.0-0.2); BASO % 0.8 % (0.0-2.0); EOS % 0.2 % (0.0-4.0); GRAN # 3.8 K/mm3 (1.4-6.5); HEMATOCRIT 40.1 % (42.0-52.0); HEMOGLOBIN 13.4 g/dl (13.5-18.0); LYMPH # 1.3 K/mm3 (1.2-3.4); LYMPH % 22.7 % (20.0-51.0); MEAN CELL VOLUME 90 fl (80.0-100.0); MEAN CORPUSCULAR HEMOGLOBIN 30 pg (27-31); MEAN CORPUSCULAR HGB CONC 33 g/dl (33.0-37.0); MEAN PLATELET VOLUME 10.7 fl (7.4-10.4); MONO # 0.7 K/mm3 (0.1-0.6); PLATELET COUNT 192 K/mm3 (130-400); RED BLOOD COUNT 4.44 M/mm3 (4.20-5.60); REDCELL DISTRIBUTION WIDTH-CV 14.8 % (11.5-14.5)
[2022-11-01 15:41] LABS: ALANINE AMINOTRANSFERASE 54 U/L (0-55); ALBUMIN 3.7 gm/dL (3.5-5.0); ALKALINE PHOSPHATASE 93 U/L (40-150); ANION GAP 21 mmol/L (7-16); AST,SGOT 128 U/L (5-34); BILIRUBIN,TOTAL 1.4 mg/dL (0.2-1.2); BLOOD UREA NITROGEN 9 mg/dL (9-21); CALCIUM 9.4 mg/dL (8.4-10.2); CARBON DIOXIDE 16 mmol/L (22-29); CHLORIDE 101 mmol/L (98-107); GLUCOSE 142 mg/dL (70-99); SODIUM 138 mmol/L (136-145); TOTAL PROTEIN 7.9 gm/dL (6.2-8.1)
[2022-11-01 15:47] LABS: ALCOHOL(ethanol),MEDICAL < 10 mg/dL (0-10)
[2022-11-01 22:52] VITALS: BP 160/108; PULSE 76
== END 2022-11-01 22:55 | disposition home or self-care (01) ==
LOC: COL.ER 14:17
PROVIDERS: Physician Assistant
DX: G40.909 Epilepsy, unspecified, not intractable, without status epilepticus (principal); Z91.148 Patient's other noncompliance with medication regimen for other reason; Z28.310 Unvaccinated for COVID-19
CPT/HCPCS: J1953; J2060; J7030

== ENCOUNTER 2023-02-16 09:18 | Emergency (ER) | payer SELFPAY ==
[~2023-02-16] VITALS: Ht 180.3 cm; Wt 81.8 kg
[2023-02-16 09:22] VITALS: TEMP 98.6
[2023-02-16 10:38] LABS: BASO % 0.5 % (0.0-2.0); GRAN # 2.4 K/mm3 (1.4-6.5); GRAN % 57.9 % (42.2-75.2); HEMOGLOBIN 10.2 g/dl (13.5-18.0); LYMPH # 0.9 K/mm3 (1.2-3.4); MEAN CELL VOLUME 87 fl (80.0-100.0); MEAN CORPUSCULAR HEMOGLOBIN 30 pg (27-31); MEAN CORPUSCULAR HGB CONC 35 g/dl (33.0-37.0); MEAN PLATELET VOLUME 10.8 fl (7.4-10.4); MONO # 0.7 K/mm3 (0.1-0.6); MONO % 18.1 % (1.7-9.3); PLATELET COUNT 230 K/mm3 (130-400); REDCELL DISTRIBUTION WIDTH-CV 17.9 % (11.5-14.5)
[2023-02-16 10:41] LABS: HEMATOCRIT 29.6 % (42.0-52.0)
[2023-02-16 10:57] LABS: ACETAMINOPHEN < 1.0 ug/mL (10-30); ALANINE AMINOTRANSFERASE 37 U/L (0-55); ALBUMIN 3.5 gm/dL (3.5-5.0); ALCOHOL(ethanol),MEDICAL 30 mg/dL (0-10); ALKALINE PHOSPHATASE 66 U/L (40-150); ANION GAP 21 mmol/L (7-16); AST,SGOT 116 U/L (5-34); BILIRUBIN,TOTAL 0.4 mg/dL (0.2-1.2); BLOOD UREA NITROGEN 8 mg/dL (9-21); CALCIUM 8.6 mg/dL (8.4-10.2); CARBON DIOXIDE 21 mmol/L (22-29); CHLORIDE 99 mmol/L (98-107); CREATINE KINASE 581 U/L (30-200); CREATININE, serum 0.77 mg/dL (0.72-1.25); GLUCOSE 118 mg/dL (70-99); POTASSIUM 3.2 mmol/L (3.5-4.5); SALICYLATE < 5.0 mg/dL (15.0-30.0); SODIUM 141 mmol/L (136-145); TOTAL PROTEIN 7.2 gm/dL (6.2-8.1)
[2023-02-16 11:03] LABS: TROPONIN-I 0.014 ng/mL (0.00-0.033)
[2023-02-16 12:06] VITALS: BP 157/113; PULSE 86
== END 2023-02-16 12:06 | disposition home or self-care (01) ==
LOC: COL.ER 09:18
PROVIDERS: Emergency Medicine
DX: R56.9 Unspecified convulsions (principal); Z28.310 Unvaccinated for COVID-19
CPT/HCPCS: J1953; J7030

== ENCOUNTER 2023-06-29 08:11 | Inpatient (IN) | payer SELFPAY ==
[~2023-06-29] VITALS: Ht 180.3 cm; Wt 77.8 kg
[2023-06-29] VITALS (413 sets, daily range): BP systolic 141–175; BP diastolic 110–129; PULSE 92–121; TEMP 97.7–99.1; O2SAT 77–100
[2023-06-29 08:44] LABS: BASO # 0.1 K/mm3 (0.0-0.2); BASO % 1.1 % (0.0-2.0); EOS # 0.1 K/mm3 (0.0-0.7); EOS % 1.8 % (0.0-4.0); GRAN # 2.5 K/mm3 (1.4-6.5); GRAN % 56.6 % (42.2-75.2); HEMOGLOBIN 12.2 g/dl (13.5-18.0); LYMPH # 1.2 K/mm3 (1.2-3.4); LYMPH % 27.6 % (20.0-51.0); MEAN CELL VOLUME 84 fl (80.0-100.0); MEAN CORPUSCULAR HEMOGLOBIN 30 pg (27-31); MEAN CORPUSCULAR HGB CONC 35 g/dl (33.0-37.0); MEAN PLATELET VOLUME 10.6 fl (7.4-10.4); MONO # 0.6 K/mm3 (0.1-0.6); MONO % 12.4 % (1.7-9.3); PLATELET COUNT 206 K/mm3 (130-400); RED BLOOD COUNT 4.13 M/mm3 (4.20-5.60); REDCELL DISTRIBUTION WIDTH-CV 18.1 % (11.5-14.5)
[2023-06-29 08:47] LABS: HEMATOCRIT 34.8 % (42.0-52.0)
[2023-06-29 08:57] LABS: ALBUMIN 3.7 gm/dL (3.5-5.0); BILIRUBIN,TOTAL 0.4 mg/dL (0.2-1.2); CALCIUM 8.5 mg/dL (8.4-10.2); CREATININE, serum 0.86 mg/dL (0.72-1.25); POTASSIUM 3.5 mmol/L (3.5-4.5); TOTAL PROTEIN 7.6 gm/dL (6.2-8.1)
[2023-06-29] MEDS ORDERED: LR 1,000 ML IV ONE ×2 (09:15)
[2023-06-29] MEDS ORDERED: Thiamine 100 MG TAB PO ONE (09:15)
[2023-06-29] MEDS ORDERED: Folic Acid 1 MG TAB PO ONE (09:15)
[2023-06-29] MEDS ORDERED: LEVETIRACETAM IV ONE (10:45)
[2023-06-29] MEDS ORDERED: LEVETIRACETAM 1500 MG/100 ML IV SCH (11:00)
[2023-06-29] MEDS ORDERED: LORazepam 2 MG/ML 1 ML VIAL IV ONE (11:00)
[2023-06-29] MEDS ORDERED: KEPPRA 500MG500 MG PO (12:37)
[2023-06-29] MEDS ORDERED: hydrALAZINE 20 MG/ML 1 ML VIAL IV ONE (13:30)
[2023-06-29] MEDS ORDERED: *Potassium Replacement Protocol MC SCH (13:30)
--- NOTE | 2023-06-29 14:36 | NUR ---
RECEIVED REPORT FROM ED RNYUNG VIA PHONE CALL @ [phone]. PATIENT ARRIVED TO UNIT VIA STRETCHER ACCOMPANIED BY YUNG ACOSTA AT 1420. PATIENT WAS ABLE TO TRANSFER INTO ICU BED USING 2X ASSIST. PATIENT IS ALERT AND ORIENTED BUT DOES NOT REMEMBER HAVING ANY SEIZURES.
[2023-06-29] MEDS ORDERED: Gadoterate 20 ML VIAL IV ONE (15:51)
[2023-06-29] MEDS ORDERED: LORazepam 2 MG/ML 1 ML VIAL IV PRN ×2 (17:15)
[2023-06-29] MEDS ORDERED: Mag/Al Hydrox/Simeth Susp 30 ML CUP PO PRN (17:15)
[2023-06-29] MEDS ORDERED: amLODIPine 5 MG TAB PO SCH (19:00)
[2023-06-29] MEDS ORDERED: hydrALAZINE 20 MG/ML 1 ML VIAL IV PRN (19:00)
--- NOTE | 2023-06-29 19:30 | NUR ---
Received report from KARLA Taylor. Pt is intubated and lying in bed with versed and fentanyl running. Pt also has IVF running at this time. Pt has tube feeds running at this time through the OG at starting rate, 20 ml/hr. Burden has no kinks in tubing and is draining. SCD's are on at this time. Pt's vitals are stable at this time. Pt's is in A-Paced beat with rate sitting in 70's to 80's. Pt's left upper chest site for pacemaker placement is clean, dry and intact with no hematoma's felt. Will continue with pt care.
--- NOTE | 2023-06-29 19:40 | NUR ---
Received report from KARLA Coreas. Pt is alert and resting in bed. Pt has no IVF running at this time. Pt has the call light within reach and bed alarms on. Pt does not look in distress at this time. Pt HR is tachy and pt's BP is high, but meds have been given per EMAR. Will continue with pt care.
[2023-06-29] MEDS ORDERED: Potassium Bicarbonate/Citrate 20 MEQ Effervescent TAB PO SCH (20:00)
[2023-06-29] MEDS ORDERED: levETIRAcetam 100 ML IV SCH (21:00)
[2023-06-30] VITALS (93 sets, daily range): BP systolic 146–155; BP diastolic 106–120; PULSE 90–109; TEMP 97.6–98.9; O2SAT 92–99
[2023-06-30 00:29] LABS: COLLECTION METHOD CLEAN CATCH
[2023-06-30 00:39] LABS: URINE APPEARANCE Clear (CLEAR/HAZY); URINE COLOR Yellow (YELLOW)
[2023-06-30 00:40] LABS: URINE BLOOD Negative (NEGATIVE); URINE GLUCOSE Negative (NEGATIVE); URINE KETONE Negative (NEGATIVE); URINE NITRATE Negative (NEGATIVE); URINE PROTEIN(semi-quant) Negative (NEGATIVE)
[2023-06-30 00:41] LABS: TRICYCLIC ANTIDEPRESS URINE NEGATIVE (NEGATIVE)
[2023-06-30 00:42] LABS: SQUAMOUS EPITHELIAL 0-2 /hpf (0-10); URINE RBC None Seen /hpf (0-2)
[2023-06-30] MEDS ORDERED: hydrALAZINE 20 MG/ML 1 ML VIAL IV PRN (04:00)
[2023-06-30 05:52] LABS: ALBUMIN 3.4 gm/dL (3.5-5.0); CALCIUM 8.9 mg/dL (8.4-10.2); CREATININE, serum 0.82 mg/dL (0.72-1.25); MAGNESIUM 1.4 mg/dL (1.6-2.6); PHOSPHOROUS 3.2 mg/dL (2.3-4.7); POTASSIUM 3.7 mmol/L (3.5-4.5)
[2023-06-30] MEDS ORDERED: Potassium Bicarbonate/Citrate 20 MEQ Effervescent TAB PO SCH (06:15)
[2023-06-30 06:32] LABS: BASO % 0.6 % (0.0-2.0); EOS # 0.1 K/mm3 (0.0-0.7); EOS % 1.5 % (0.0-4.0); GRAN # 2.4 K/mm3 (1.4-6.5); GRAN % 51.1 % (42.2-75.2); HEMOGLOBIN 12.1 g/dl (13.5-18.0); LYMPH # 1.3 K/mm3 (1.2-3.4); LYMPH % 27.7 % (20.0-51.0); MEAN CELL VOLUME 85 fl (80.0-100.0); MEAN CORPUSCULAR HEMOGLOBIN 29 pg (27-31); MEAN CORPUSCULAR HGB CONC 35 g/dl (33.0-37.0); MEAN PLATELET VOLUME 11.4 fl (7.4-10.4); MONO # 0.9 K/mm3 (0.1-0.6); MONO % 18.7 % (1.7-9.3); PLATELET COUNT 193 K/mm3 (130-400); RED BLOOD COUNT 4.11 M/mm3 (4.20-5.60); REDCELL DISTRIBUTION WIDTH-CV 17.4 % (11.5-14.5)
[2023-06-30 06:33] LABS: HEMATOCRIT 34.9 % (42.0-52.0)
--- NOTE | 2023-06-30 06:43 | NUR ---
Pt had an uneventful night. Pt's BP has been high and meds have been given per EMAR. Pt needs standby assist-x1 assist when getting up of bed. Pt uses urinal for the rest room and has some incont of urine throughout the night as well. Pt was shakey when getting out of bed. Pt's other vitals have been stable throughout the night. Pt is currently resting in bed with the call light within reach and bed alarms on. Will give report to day shift nurse.
[2023-06-30] MEDS ORDERED: Multivitamin TAB PO SCH (08:00)
[2023-06-30] MEDS ORDERED: amLODIPine 10 MG TAB PO SCH (09:00)
[2023-06-30] MEDS ORDERED: Folic Acid 1 MG TAB PO SCH (09:00)
[2023-06-30] MEDS ORDERED: Magnesium Oxide 400 MG TAB PO SCH (10:02)
[2023-06-30] MEDS ORDERED: KEPPRA 500MG500 MG PO (10:05)
[2023-06-30] MEDS ORDERED: MAG-OX 400400 MG/TAB PO (10:06)
--- NOTE | 2023-06-30 10:30 | NUR ---
Patient has removed monitoring equipment multiple times. Has frequently been getting up from bed without calling, despite frequent reminders. Bed alarm activated. Patient has been pleasant with staff and mostly easily re-directed. However states that he wants to go home and sent his cousin home to get clothes for him. Discussed with Dr. Montiel, and after seeing patient Dr. Montiel agreed to discharge. Patient discharged at 1052 via wheelchair. Family at bedside and left via private car together.
--- NOTE | 2023-06-30 14:11 | NUR ---
Patient discharged prior to social economist being able to meet with him. SW notified R1 that patient was self-pay and may need assistance with a financial assistance application.
== END 2023-06-30 10:50 | disposition home or self-care (01) | DRG 897 ==
LOC: COL.ER 08:11 → ICU 11:44
PROVIDERS: Emergency Medicine; ADMIT Internal Medicine
DX: F10.139 Alcohol abuse with withdrawal, unspecified (principal); G40.901 Epilepsy, unspecified, not intractable, with status epilepticus; E83.42 Hypomagnesemia; Y90.2 Blood alcohol level of 40-59 mg/100 ml; Z87.891 Personal history of nicotine dependence; Z91.148 Patient's other noncompliance with medication regimen for other reason
CPT/HCPCS: A9575; J0360; J1953; J2060; J7120

== ENCOUNTER 2023-07-01 18:25 | Emergency (ER) | payer SELFPAY ==
[~2023-07-01] VITALS: Ht 180.3 cm; Wt 84.1 kg
[~2023-07-01 18:25] MED LIST changes: +MAG-OX 400400 MG/TAB PO
[2023-07-01 18:26] VITALS: TEMP 98
[2023-07-01] MEDS ORDERED: Ibuprofen 400 MG TAB PO ONE (18:45)
[2023-07-01] MEDS ORDERED: Acetaminophen 325 MG TAB PO ONE (18:45)
[2023-07-01] MEDS ORDERED: Metoprolol Tartrate 50 MG TAB PO ONE (19:30)
[2023-07-01] MEDS ORDERED: amLODIPine 10 MG TAB PO ONE (19:30)
[2023-07-01 20:05] VITALS: BP 150/106; PULSE 92
== END 2023-07-01 20:20 | disposition home or self-care (01) ==
LOC: COL.ER 18:25
DX: M25.562 Pain in left knee (principal); M54.2 Cervicalgia; M54.9 Dorsalgia, unspecified; F17.210 Nicotine dependence, cigarettes, uncomplicated; W18.30XA Fall on same level, unspecified, initial encounter

== ENCOUNTER 2023-09-10 05:41 | Emergency (ER) | payer SELFPAY ==
[~2023-09-10] VITALS: Ht 180.3 cm; Wt 77.3 kg
[~2023-09-10 05:41] MED LIST changes: +FOLIC ACID 11 MG/TA1 PO; +HCTZ12.5TAB PO; +MULTI VITAMINS1 TAB PO; +NATURE'S BLEND100 M2 PO; +NORVASC 10MG10 MG PO; +PRINIVIL20 MG PO
[2023-09-10 05:42] VITALS: TEMP 98.1
[2023-09-10] MEDS ORDERED: levETIRAcetam 100 ML IV ONE (05:45)
[2023-09-10] MEDS ORDERED: Dextrose 50% Water 25 GM/50 ML SYRINGE IV ONE (05:45)
[2023-09-10] MEDS ORDERED: NS 1,000 ML IV ONE (05:45)
[2023-09-10] MEDS ORDERED: LORazepam 2 MG/ML 1 ML VIAL IV ONE (05:45)
[2023-09-10] MEDS ORDERED: KEPPRA 500MG500 MG PO (05:52)
[2023-09-10 05:58] LABS: BASO # 0.1 K/mm3 (0.0-0.2); BASO % 1.9 % (0.0-2.0); EOS # 0.1 K/mm3 (0.0-0.7); EOS % 2.8 % (0.0-4.0); GRAN # 1.5 K/mm3 (1.4-6.5); GRAN % 35.3 % (42.2-75.2); HEMOGLOBIN 11.7 g/dl (13.5-18.0); LYMPH # 1.8 K/mm3 (1.2-3.4); LYMPH % 43.5 % (20.0-51.0); MEAN CELL VOLUME 86 fl (80.0-100.0); MEAN CORPUSCULAR HEMOGLOBIN 30 pg (27-31); MEAN CORPUSCULAR HGB CONC 35 g/dl (33.0-37.0); MEAN PLATELET VOLUME 9.9 fl (7.4-10.4); MONO # 0.7 K/mm3 (0.1-0.6); MONO % 16.3 % (1.7-9.3); PLATELET COUNT 260 K/mm3 (130-400); RED BLOOD COUNT 3.91 M/mm3 (4.20-5.60); REDCELL DISTRIBUTION WIDTH-CV 18.9 % (11.5-14.5)
[2023-09-10 06:02] LABS: HEMATOCRIT 33.8 % (42.0-52.0)
[2023-09-10 06:17] LABS: ALBUMIN 3.8 g/dL (3.5-5.0); BILIRUBIN,TOTAL 0.4 mg/dL (0.2-1.2); CREATININE, serum 0.81 mg/dL (0.72-1.25); POTASSIUM 3.7 mEq/L (3.5-4.5); TOTAL PROTEIN 7.5 g/dl (6.2-8.1)
[2023-09-10 09:10] VITALS: BP 152/103; PULSE 91
[2023-09-16] MEDS ORDERED: HCTZ12.5TAB PO (12:31)
[2023-09-16] MEDS ORDERED: PRINIVIL20 MG PO (12:31)
[2023-09-17] MEDS ORDERED: NORVASC 5MG5 MG/TAB PO (19:38)
[2023-09-17] MEDS ORDERED: TOPROL XL 50MG50 MG PO (19:38)
[2023-09-17] MEDS ORDERED: LIPITOR 40MG TA40 MG PO (19:40)
== END 2023-09-10 09:10 | disposition home or self-care (01) ==
LOC: COL.ER 05:41
PROVIDERS: Personal Emergency Response Attendant
DX: R56.9 Unspecified convulsions (principal); F10.20 Alcohol dependence, uncomplicated; Z91.148 Patient's other noncompliance with medication regimen for other reason; Y90.6 Blood alcohol level of 120-199 mg/100 ml
CPT/HCPCS: J1953; J2060; J7030

== ENCOUNTER 2023-10-09 16:22 | Emergency (ER) | payer SELFPAY ==
[~2023-10-09] VITALS: Ht 180.3 cm; Wt 86.4 kg
[~2023-10-09 16:22] MED LIST changes: +NORVASC 5MG5 MG/TAB PO; +TOPROL XL 50MG50 MG PO
[2023-10-09 16:26] VITALS: TEMP 98.3
[2023-10-09] MEDS ORDERED: NS 1,000 ML IV ONE (17:00)
[2023-10-09] MEDS ORDERED: Ketorolac 15 MG/ML VIAL IV ONE (17:00)
[2023-10-09 17:28] LABS: HEMOGLOBIN 11.5 g/dl (13.5-18.0); MEAN CELL VOLUME 88 fl (80.0-100.0); MEAN CORPUSCULAR HEMOGLOBIN 30 pg (27-31); MEAN CORPUSCULAR HGB CONC 34 g/dl (33.0-37.0); MEAN PLATELET VOLUME 11.1 fl (7.4-10.4); PLATELET COUNT 261 K/mm3 (130-400); RED BLOOD COUNT 3.79 M/mm3 (4.20-5.60); REDCELL DISTRIBUTION WIDTH-CV 18.3 % (11.5-14.5)
[2023-10-09 17:31] LABS: HEMATOCRIT 33.4 % (42.0-52.0)
[2023-10-09 17:45] LABS: ALANINE AMINOTRANSFERASE 42 U/L (0-55); ALBUMIN 3.4 g/dL (3.5-5.0); ALKALINE PHOSPHATASE 44 U/L (40-150); ANION GAP 11 mmol/L (7-16); AST,SGOT 55 U/L (5-34); BILIRUBIN,TOTAL 0.4 mg/dL (0.2-1.2); BLOOD UREA NITROGEN 9 mg/dL (9-21); CALCIUM 9.4 mg/dL (8.4-10.2); CHLORIDE 106 mEq/L (98-107); CREATININE, serum 1.19 mg/dL (0.72-1.25); GLUCOSE 94 mg/dL (70-99); POTASSIUM 3.8 mEq/L (3.5-4.5); SODIUM 137 mEq/L (136-145); TOTAL PROTEIN 7.3 g/dl (6.2-8.1)
[2023-10-09 17:48] LABS: BASOPHIL 1 % (0-2); EOSINOPHIL 4 % (0-4); LYMPHOCYTE 31 % (20.0-51.0); NEUTROPHILS 42 % (42.0-75.2)
[2023-10-09 17:50] LABS: TARGET CELLS 1+
[2023-10-09 18:02] LABS: TROPONIN-I < 0.010 ng/mL (0.00-0.033)
[2023-10-09 18:41] VITALS: BP 159/117; PULSE 67
== END 2023-10-09 18:41 ==
LOC: COL.ER 16:22
PROVIDERS: Personal Emergency Response Attendant
DX: R07.89 Other chest pain (principal)
CPT/HCPCS: J1885; J7030

== ENCOUNTER 2023-12-10 10:00 | Emergency (ER) | payer SELFPAY ==
[~2023-12-10] VITALS: Ht 175.3 cm; Wt 81.8 kg
[2023-12-10 10:07] VITALS: TEMP 97.8
[2023-12-10] MEDS ORDERED: levETIRAcetam 1,000 MG in Syringe 1 EACH IV ONE (10:30)
[2023-12-10] MEDS ORDERED: NS 1,000 ML IV ONE (10:30)
[2023-12-10 10:43] LABS: BASO % 0.4 % (0.0-2.0); EOS % 0.2 % (0.0-4.0); GRAN # 8.1 K/mm3 (1.4-6.5); GRAN % 79.6 % (42.2-75.2); HEMOGLOBIN 11.9 g/dl (13.5-18.0); LYMPH # 1.3 K/mm3 (1.2-3.4); LYMPH % 12.6 % (20.0-51.0); MEAN CELL VOLUME 83 fl (80.0-100.0); MEAN CORPUSCULAR HEMOGLOBIN 28 pg (27-31); MEAN CORPUSCULAR HGB CONC 34 g/dl (33.0-37.0); MEAN PLATELET VOLUME 10.5 fl (7.4-10.4); MONO # 0.7 K/mm3 (0.1-0.6); MONO % 6.9 % (1.7-9.3); PLATELET COUNT 272 K/mm3 (130-400); RED BLOOD COUNT 4.25 M/mm3 (4.20-5.60); REDCELL DISTRIBUTION WIDTH-CV 14.2 % (11.5-14.5)
[2023-12-10 11:03] LABS: ALANINE AMINOTRANSFERASE 16 U/L (0-55); ALBUMIN 3.8 g/dL (3.5-5.0); ALKALINE PHOSPHATASE 62 U/L (40-150); ANION GAP 26 mmol/L (7-16); AST,SGOT 35 U/L (5-34); BILIRUBIN,TOTAL 0.7 mg/dL (0.2-1.2); BLOOD UREA NITROGEN 15 mg/dL (9-21); CALCIUM 9.7 mg/dL (8.4-10.2); CHLORIDE 101 mEq/L (98-107); CREATININE, serum 1.17 mg/dL (0.72-1.25); GLUCOSE 136 mg/dL (70-99); HEMATOCRIT 35.3 % (42.0-52.0); POTASSIUM 4.9 mEq/L (3.5-4.5); SODIUM 141 mEq/L (136-145); TOTAL PROTEIN 7.5 g/dl (6.2-8.1)
[2023-12-10 11:23] LABS: ALCOHOL(ethanol),MEDICAL < 10 mg/dL (0-10)
[2023-12-10 11:50] VITALS: BP 125/79; PULSE 78
== END 2023-12-10 12:06 | disposition home or self-care (01) ==
LOC: COL.ER 10:00
PROVIDERS: Physician Assistant
DX: G40.909 Epilepsy, unspecified, not intractable, without status epilepticus (principal); T42.6X6A Underdosing of other antiepileptic and sedative-hypnotic drugs, initial encounter; Z91.128 Patient's intentional underdosing of medication regimen for other reason
CPT/HCPCS: J1953; J7030

== ENCOUNTER 2023-12-22 10:28 | Inpatient (IN) | payer SELFPAY ==
[~2023-12-22] VITALS: Ht 180.3 cm; Wt 81.6 kg
[2023-12-22] VITALS (367 sets, daily range): BP systolic 116–140; BP diastolic 81–101; PULSE 78–92; TEMP 97.9–98.4; O2SAT 57–100
[2023-12-22] MEDS ORDERED: NS 1,000 ML IV ONE ×3 (10:45→14:00)
[2023-12-22 11:45] LABS: BASO % 0.6 % (0.0-2.0); EOS % 0.3 % (0.0-4.0); GRAN # 2.6 K/mm3 (1.4-6.5); GRAN % 77.2 % (42.2-75.2); HEMOGLOBIN 11.3 g/dl (13.5-18.0); LYMPH # 0.6 K/mm3 (1.2-3.4); LYMPH % 16.5 % (20.0-51.0); MEAN CELL VOLUME 88 fl (80.0-100.0); MEAN CORPUSCULAR HEMOGLOBIN 29 pg (27-31); MEAN CORPUSCULAR HGB CONC 33 g/dl (33.0-37.0); MONO # 0.2 K/mm3 (0.1-0.6); MONO % 4.8 % (1.7-9.3); PLATELET COUNT 241 K/mm3 (130-400); RED BLOOD COUNT 3.92 M/mm3 (4.20-5.60); REDCELL DISTRIBUTION WIDTH-CV 17.7 % (11.5-14.5)
[2023-12-22 11:47] LABS: HEMATOCRIT 34.6 % (42.0-52.0)
[2023-12-22 12:05] LABS: ALANINE AMINOTRANSFERASE 21 U/L (0-55); ALBUMIN 3.1 g/dL (3.5-5.0); ALKALINE PHOSPHATASE 67 U/L (40-150); ANION GAP 22 mmol/L (7-16); AST,SGOT 40 U/L (5-34); BILIRUBIN,TOTAL 0.2 mg/dL (0.2-1.2); BLOOD UREA NITROGEN 12 mg/dL (9-21); CALCIUM 7.8 mg/dL (8.4-10.2); CHLORIDE 110 mEq/L (98-107); CREATININE, serum 0.74 mg/dL (0.72-1.25); GLUCOSE 119 mg/dL (70-99); POTASSIUM 3.3 mEq/L (3.5-4.5); SODIUM 142 mEq/L (136-145); TOTAL PROTEIN 6.5 g/dl (6.2-8.1)
[2023-12-22 12:15] LABS: TROPONIN-I < 0.010 ng/mL (0.00-0.033)
[2023-12-22] MEDS ORDERED: Ketorolac 15 MG/ML VIAL IV ONE (12:45)
[2023-12-22 13:55] LABS: COLLECTION METHOD CLEAN CATCH
[2023-12-22 14:01] LABS: URINE APPEARANCE CLEAR (CLEAR/HAZY); URINE BLOOD NEGATIVE (NEGATIVE); URINE COLOR YELLOW (YELLOW); URINE GLUCOSE NEGATIVE (NEGATIVE); URINE KETONE 2+ (NEGATIVE); URINE NITRATE NEGATIVE (NEGATIVE); URINE PROTEIN(semi-quant) TRACE (NEGATIVE); URINE UROBILINOGEN 0.2 E.U/dL (0.2-1.0)
[2023-12-22] MEDS ORDERED: KEPPRA1000 MG PO (15:13)
[2023-12-22] MEDS ORDERED: Dextrose 50% Water 25 GM/50 ML SYRINGE IV PRN (15:30)
[2023-12-22] MEDS ORDERED: Acetaminophen 500 MG TAB PO PRN (15:30)
[2023-12-22] MEDS ORDERED: Glucagon 1 MG VIAL IM PRN (15:30)
[2023-12-22] MEDS ORDERED: Ondansetron 4 MG/2 ML VIAL IV PRN (15:30)
[2023-12-22] MEDS ORDERED: Dextrose (Glucose) 15 GM (4 x 3.75 GM) Chewable TABLET PACK PO PRN (15:30)
[2023-12-22] MEDS ORDERED: NS 1,000 ML IV SCH ×2 (15:30→20:30)
[2023-12-22] MEDS ORDERED: NS & 40 mEq KCl 1,000 ML IV SCH (15:30)
--- NOTE | 2023-12-22 15:30 | NUR ---
During admission physical assessment, pt demonstrated L sided weakness. Hand graps unequal, foot dorsi flexion and plantar flexion unequal. Patient states that he had a stroke "a year or two ago".
--- NOTE | 2023-12-22 17:00 | NUR ---
Patient arrived to the ICU 14:54. Received report from KARLA Oliveros from the ED via phone. Patient attached to critical care monitors, VS stable and WNL. Patient is oriented x4 stating he has nausea, but asking for juice. Zofran given for nausea. Pt oriented to room, bed alarm activated, call light within reach.
[2023-12-22] MEDS ORDERED: diazePAM 5 MG TAB PO PRN (17:15)
[2023-12-22] MEDS ORDERED: chlordiazePOXIDE 25 MG CAP PO PRN (17:15)
[2023-12-22] MEDS ORDERED: Mag/Al Hydrox/Simeth Susp 30 ML CUP PO PRN (17:15)
[2023-12-22] MEDS ORDERED: levETIRAcetam 500 MG TAB PO SCH (21:00)
--- NOTE | 2023-12-22 21:34 | NUR ---
PT HAS A BASELINE LEFT SIDED WEAKNESS. PT STATES HE DOES NOT CHECK HIS BLOOD SUGAR AT HOME. STATES HE DOES TAKE HIS SEIZURE MEDICATION. PT STATES HE DOES NOT HAVE HEALTH INSURANCE. ENCOURAGED PT TO GET PCP AND ASK FOR ASSISTANCE WITH MEDICATION AND DIABETIC SUPPLIES. PT REFUSED HS CARE. STABLE ON ROUNDS. NO SIGN OF DISTRESS AT THIS TIME. CONTINUE PLAN OF CARE.
[2023-12-23] VITALS (437 sets, daily range): BP systolic 116–157; BP diastolic 81–116; PULSE 54–99; TEMP 97.7–98.4; O2SAT 72–100
[2023-12-23 05:33] LABS: BASO % 0.3 % (0.0-2.0); EOS # 0.1 K/mm3 (0.0-0.7); EOS % 1.1 % (0.0-4.0); GRAN # 4.4 K/mm3 (1.4-6.5); GRAN % 68.1 % (42.2-75.2); HEMATOCRIT 31.5 % (42.0-52.0); HEMOGLOBIN 10.8 g/dl (13.5-18.0); LYMPH # 1.1 K/mm3 (1.2-3.4); LYMPH % 17.5 % (20.0-51.0); MEAN CELL VOLUME 83 fl (80.0-100.0); MEAN CORPUSCULAR HEMOGLOBIN 28 pg (27-31); MEAN CORPUSCULAR HGB CONC 34 g/dl (33.0-37.0); MEAN PLATELET VOLUME 10.3 fl (7.4-10.4); MONO # 0.8 K/mm3 (0.1-0.6); MONO % 12.7 % (1.7-9.3); PLATELET COUNT 221 K/mm3 (130-400); RED BLOOD COUNT 3.82 M/mm3 (4.20-5.60); REDCELL DISTRIBUTION WIDTH-CV 16.9 % (11.5-14.5)
[2023-12-23 05:47] LABS: CALCIUM 8.1 mg/dL (8.4-10.2); CREATININE, serum 0.97 mg/dL (0.72-1.25); POTASSIUM 4.5 mEq/L (3.5-4.5)
--- NOTE | 2023-12-23 06:23 | NUR ---
NO SEIZURE ACTIVITY NOTED OVERNIGHT. PT STATES HE DOES TAKE SEIZURE MEDICATION AT HOME BUT DOESN'T KNOW THE NAME. BLOOD SUGAR AT 0442 WAS 78. PT DENIED FEELING LIKE BLOOD SUGAR WAS LOW, BUT DID ASK FOR ORANGE JUICE. PT GIVEN ORANGE JUICE. BLOOD SUGAR ON AM LABS WAS 118. PT WAS GIVEN EDUCATION ON ABC'S OF DIABETES AND LOW BLOOD SUGAR. REMAINS STABLE ON ROUNDS. RESPIRATIONS EVEN AND UNLABORED. NO SIGN OF DISTRESS AT THIS TIME. CONTINUE PLAN OF CARE.
[2023-12-23] MEDS ORDERED: Multivitamin TAB PO SCH (08:00)
--- NOTE | 2023-12-23 08:00 | NUR ---
Patient alert and resting in bed. Patient has NS running at 125ml/hr, Zosyn 4.5 running @25ml/hr to the R AC peripheral line. IV site shows no signs of redness, swelling, infiltration. Educated patient on how to order breakfast. Call light in reach
[2023-12-23] MEDS ORDERED: Folic Acid 1 MG TAB PO SCH (09:00)
[2023-12-23] MEDS ORDERED: Lisinopril 10 MG TAB PO SCH (09:58)
--- NOTE | 2023-12-23 09:59 | NUR ---
Pt states that his throat hurts when he swallows. No redness visualized. Pt states it does not feel like the same kind of pain you have when have a cold, but it "just hurts" when he swallows
--- NOTE | 2023-12-23 10:28 | NUR ---
SW met with Pt beside to complete initial assessment and discuss discharge planning. Pt states he lives at home alone in [place]. Pt has no PCP and uses [facility] for medication. Pt confirms his 1st DPOA is Shen [phone] (brother) and alternative is Galdino [phone] (son). Pt has no insurance at the time of admission and is receptive to meeting with a financial administrative assistant during his stay. Per chart review, Pt has had multiple admission and isn't always receptive to the help of a financial administrative assistant. DEONTE will send and email and CC Diann Wong to ensure Pt needs are met. At home Pt uses a cane to ambulate. Independent with all ADLs. No current concerns about returning home. At the end of the assessment, Pt requested to speak with Hospitalist. Nursing staff notified. SW will continue to monitor for discharge planning needs. Discharge disposition: Home
--- NOTE | 2023-12-23 20:40 | NUR ---
UPON SHIFT ASSESSMENT PATIENT WAS AWAKE IN BED AND AXO X4-WATCHING TV. PATIENT SHOWS LITTLE MOTIVATION IN HIS PLAN OF CARE-APPEARS UNINTERESTED. CURRENT BG IS 116 AND PATIENT HAS EATEN 100% OF DINNER TRAY AND REQUESTS A TURKEY SANDWHICH BOX FOR LATER. CURRENT CIWA SCORE IS 1. PATIENT DENIES PAIN AND VS ARE WNL. LT EYE IS TEARING AND PINGUECULA NOTED. SEIZURE PRECAUTIONS IN PLACE, CALL LIGHT WITHIN REACH AND BED ALARM ON.
--- NOTE | 2023-12-24 01:30 | NUR ---
CIWA SCORE REMAINS 1. PATIENT HAS EATEN SANDVideoProsICH BOX. CURRENT BG 127 AND VS ARE WNL. CALL LIGHT WITHIN REACH.
--- NOTE | 2023-12-24 01:43 | NUR ---
ENTERED PATIENT ROOM TO PERFORM DETOX SCREEN. TRAVELL REQUESTED TO SKIP NEXT SCREENING AND WANTS TO REST. PATIENT EDUCATION PROVIDED.
--- NOTE | 2023-12-24 03:50 | NUR ---
PER PATIENT REQUEST, 0400 INTERVENTIONS WILL BE SKIPPED. PATIENT WISHES TO REST. PATIENT EDUCATION PROVIDED AND TRAVELL WILL ALLOW 0400 IV MEDS TO BE ADMINISTERED ONLY. THUS FAR, VS AND BG HAVE BEEN WNL AND CIWA SCORE 1.
--- NOTE | 2023-12-24 05:46 | NUR ---
PATIENT REFUSED 0600 CIWA SCREENING. STATED, "I THOUGHT Y'ALL WERE GOING TO LET ME SLEEP. LET ME SLEEP."
[2023-12-24 07:13] VITALS: BP 142/91; PULSE 62; TEMP 98.3
[2023-12-24 08:44] LABS: BASO % 0.5 % (0.0-2.0); EOS # 0.1 K/mm3 (0.0-0.7); EOS % 1.9 % (0.0-4.0); GRAN # 2.3 K/mm3 (1.4-6.5); GRAN % 52.3 % (42.2-75.2); HEMOGLOBIN 11.1 g/dl (13.5-18.0); LYMPH # 1.3 K/mm3 (1.2-3.4); LYMPH % 29.6 % (20.0-51.0); MEAN CELL VOLUME 83 fl (80.0-100.0); MEAN CORPUSCULAR HEMOGLOBIN 29 pg (27-31); MEAN CORPUSCULAR HGB CONC 35 g/dl (33.0-37.0); MEAN PLATELET VOLUME 10.8 fl (7.4-10.4); MONO # 0.7 K/mm3 (0.1-0.6); MONO % 15.5 % (1.7-9.3); PLATELET COUNT 214 K/mm3 (130-400); REDCELL DISTRIBUTION WIDTH-CV 17.4 % (11.5-14.5)
[2023-12-24 08:49] LABS: HEMATOCRIT 31.4 % (42.0-52.0)
[2023-12-24 08:54] LABS: CALCIUM 8.6 mg/dL (8.4-10.2); CREATININE, serum 0.9 mg/dL (0.72-1.25); POTASSIUM 3.8 mEq/L (3.5-4.5)
--- NOTE | 2023-12-24 09:00 | NUR ---
PT AWAKE AND RESTING IN BED. SCHEDULED MEDS GIVEN PER eMAR. PT PULLED IV SITE IN RIGHT ANTECUBITAL AREA TO GET IN THE SHOWER. NO EDEMA OR REDNESS NOTED. NO TREMORS NOTED. PT DENIES PAIN OR ANY OTHER NEEDS. PT AGREED TO CALL WITH ANY OTHER NEEDS. NO OTHER CONCERNS. BED ALARM ON AND CALL LIGHT WITHIN REACH.
[2023-12-24] MEDS ORDERED: OMNICEF 300MG300 MG PO (09:50)
[2023-12-24] MEDS ORDERED: ZESTRIL 10MG10 MG PO (09:51)
[2023-12-24 10:15] VITALS: BP 146/96; PULSE 65; TEMP 98.4
--- NOTE | 2023-12-24 10:39 | NUR ---
NOTIFIED ABDIAZIZ MURPHY THAT PT'S RIDE WILL NOT BE HERE UNTIL AFTER 1600 UPON DISCHARGE ORDERS. INFORMED ELLY MURPHY THAT PT NO LONGER HAS IV ACCESS AND HAS IV ABX DUE. AGREED TO CHANGE TO PO ABX. AGREED TO NOT DO IV ACCESS. ELLY MURPHY ALSO AGREED TO D/C CIWA PROTOCOL.
[2023-12-24] MEDS ORDERED: Cefdinir 300 MG CAP PO ONE (10:45)
--- NOTE | 2023-12-24 13:14 | NUR ---
sanitation worker hosing machinery was notified by OT that patient was more stable with a walker and wanted to see if he could have one ordered before discharge today. [facility] with financial counseling to obtain a FAA for patient to obtain walker through [facility] as patient is self pay. SW faxed walker order, FAA and clinical information to [facility]. SW met with patient. Patient stated he would like a walker to be more stable. SW provided information regarding the [facility], [facility] Resource Guide, [employer], Mental Health Resources and [facility] [employer]. Patient stated he wanted to see if he could get a doctor's note to get him back on food stamps, social media intern explained he would need to discuss this with his doctor. Patient understood. SW asked if he would be able to sheepskin pickler walker if the home medical store is unable to transport today. Patient stated yes his brother is going to pick him up and could take him by the agency to sheepskin pickler. Discharge plan: Home
--- NOTE | 2023-12-24 15:12 | NUR ---
make up worker was notified [facility] driver was still in [place] and likely wouldn't be able to transport walker to the hospital today. SW notified patient's nurse that patient will hot die picker walker at [facility]. SW met with patient and provided the address for [facility] and explained he would go there to hot die picker his walker. SW explained his brother could hot die picker for him. Patient understood. Discharge plan: Home
--- NOTE | 2023-12-24 16:40 | NUR ---
PT GIVEN DISCHARGE PAPERWORK INCLUDING F/U APPOINTMENTS, EDUCATION, AND INSTRUCTIONS AT THIS TIME. PT GIVEN WORK RELEASE TO RETURN ON 12/26. PT VERBALIZED UNDERSTANDING.
--- NOTE | 2023-12-24 16:48 | NUR ---
PT ESCORTED BY STAFF OFF UNIT AT THIS TIME VIA WHEELCHAIR.
--- NOTE | 2023-12-24 17:11 | NUR ---
ice cream vault worker was notified patient's brother is not answering his phone and patient wants to leave the hospital. Patient was to picker/puller walker at home medical store but home medical is not answering, likely closed. SW scheduled an UBER for patient to return home and requested the nurse notify patient to have his brother picker/puller walker tomorrow. DEONTE left voicemail for [facility] to reach out to patient regarding picker/puller or delivery for his walker. Discharge plan: Home
== END 2023-12-24 16:47 | disposition home or self-care (01) | DRG 872 ==
LOC: COL.ER 10:28 → ICU 13:45 → MEDICAL 12-23 14:36
PROVIDERS: Physician Assistant; ADMIT Internal Medicine
DX: A41.9 Sepsis, unspecified organism (principal); R65.20 Severe sepsis without septic shock; I10 Essential (primary) hypertension; F10.10 Alcohol abuse, uncomplicated; G40.909 Epilepsy, unspecified, not intractable, without status epilepticus; E88.89 Other specified metabolic disorders; R74.02 Elevation of levels of lactic acid dehydrogenase [LDH]; E16.2 Hypoglycemia, unspecified
CPT/HCPCS: J1650; J1885; J2405; J2543; J3480; J7030

== ENCOUNTER 2024-01-11 07:25 | Emergency (ER) | payer SELFPAY ==
[~2024-01-11] VITALS: Ht 180.3 cm; Wt 99.1 kg
[~2024-01-11 07:25] MED LIST changes: +ZESTRIL 10MG10 MG PO
[2024-01-11] MEDS ORDERED: NS 1,000 ML IV ONE (07:45)
[2024-01-11] MEDS ORDERED: levETIRAcetam 1,000 MG in Syringe 1 EACH IV ONE (07:45)
[2024-01-11 07:47] LABS: BASO % 0.8 % (0.0-2.0); EOS # 0.1 K/mm3 (0.0-0.7); EOS % 2.5 % (0.0-4.0); GRAN # 2.1 K/mm3 (1.4-6.5); GRAN % 41.3 % (42.2-75.2); HEMATOCRIT 38.1 % (42.0-52.0); HEMOGLOBIN 12.7 g/dl (13.5-18.0); LYMPH # 2.2 K/mm3 (1.2-3.4); LYMPH % 41.5 % (20.0-51.0); MEAN CELL VOLUME 86 fl (80.0-100.0); MEAN CORPUSCULAR HEMOGLOBIN 29 pg (27-31); MEAN CORPUSCULAR HGB CONC 33 g/dl (33.0-37.0); MEAN PLATELET VOLUME 10.6 fl (7.4-10.4); MONO # 0.7 K/mm3 (0.1-0.6); MONO % 13.7 % (1.7-9.3); PLATELET COUNT 227 K/mm3 (130-400); RED BLOOD COUNT 4.44 M/mm3 (4.20-5.60); REDCELL DISTRIBUTION WIDTH-CV 20.5 % (11.5-14.5)
[2024-01-11 08:01] LABS: ALANINE AMINOTRANSFERASE 16 U/L (0-55); ALBUMIN 3.6 g/dL (3.5-5.0); ALKALINE PHOSPHATASE 59 U/L (40-150); ANION GAP 16 mmol/L (7-16); AST,SGOT 37 U/L (5-34); BILIRUBIN,TOTAL 0.6 mg/dL (0.2-1.2); BLOOD UREA NITROGEN 11 mg/dL (9-21); CALCIUM 8.9 mg/dL (8.4-10.2); CHLORIDE 107 mEq/L (98-107); CREATININE, serum 1.05 mg/dL (0.72-1.25); GLUCOSE 132 mg/dL (70-99); POTASSIUM 4.3 mEq/L (3.5-4.5); SODIUM 141 mEq/L (136-145); TOTAL PROTEIN 7.4 g/dl (6.2-8.1)
[2024-01-11 08:02] LABS: ALCOHOL(ethanol),MEDICAL < 10 mg/dL (0-10)
[2024-01-11 08:43] LABS: COLLECTION METHOD CLEAN CATCH
[2024-01-11 09:50] LABS: URINE APPEARANCE CLEAR (CLEAR/HAZY); URINE COLOR YELLOW (YELLOW); URINE GLUCOSE NEGATIVE (NEGATIVE); URINE PROTEIN(semi-quant) 1+ (BEGATIVE)
[2024-01-11 09:51] LABS: URINE BLOOD TRACE-INTACT (NEGATIVE); URINE KETONE NEGATIVE (NEGATIVE); URINE NITRATE NEGATIVE (NEGATIVE); URINE UROBILINOGEN 0.2 E.U/dL (0.2-1.0)
[2024-01-11 10:20] VITALS: BP 160/123; PULSE 62; TEMP 98.5
== END 2024-01-11 10:38 | disposition home or self-care (01) ==
LOC: COL.ER 07:25
PROVIDERS: Personal Emergency Response Attendant
DX: G40.909 Epilepsy, unspecified, not intractable, without status epilepticus (principal); F10.20 Alcohol dependence, uncomplicated; F17.200 Nicotine dependence, unspecified, uncomplicated
CPT/HCPCS: J1953; J7030

== ENCOUNTER 2024-01-23 05:07 | Observation (INO) | payer SELFPAY ==
[2024-01-23] VITALS (391 sets, daily range): BP systolic 148–170; BP diastolic 112–122; PULSE 79–105; TEMP 98.7–99.3; O2SAT 63–100
[~2024-01-23] VITALS: Ht 180.3 cm; Wt 70.6 kg
[2024-01-23] MEDS ORDERED: levETIRAcetam 500 MG TAB PO ONE (05:30)
[2024-01-23 06:24] LABS: BASO # 0.1 K/mm3 (0.0-0.2); BASO % 1.1 % (0.0-2.0); EOS # 0.2 K/mm3 (0.0-0.7); EOS % 3.2 % (0.0-4.0); GRAN # 2.4 K/mm3 (1.4-6.5); GRAN % 37.8 % (42.2-75.2); HEMOGLOBIN 12.1 g/dl (13.5-18.0); LYMPH # 2.8 K/mm3 (1.2-3.4); LYMPH % 44.8 % (20.0-51.0); MEAN CELL VOLUME 86 fl (80.0-100.0); MEAN CORPUSCULAR HEMOGLOBIN 29 pg (27-31); MEAN CORPUSCULAR HGB CONC 34 g/dl (33.0-37.0); MONO # 0.8 K/mm3 (0.1-0.6); MONO % 12.8 % (1.7-9.3); PLATELET COUNT 218 K/mm3 (130-400); RED BLOOD COUNT 4.15 M/mm3 (4.20-5.60); REDCELL DISTRIBUTION WIDTH-CV 20.5 % (11.5-14.5)
[2024-01-23] MEDS ORDERED: LR 1,000 ML IV ONE (06:30)
[2024-01-23 06:38] LABS: ALBUMIN 3.7 g/dL (3.5-5.0); BILIRUBIN,TOTAL 0.5 mg/dL (0.2-1.2); CALCIUM 8.9 mg/dL (8.4-10.2); CREATININE, serum 0.92 mg/dL (0.72-1.25); POTASSIUM 3.4 mEq/L (3.5-4.5); TOTAL PROTEIN 7.3 g/dl (6.2-8.1)
[2024-01-23 06:45] LABS: HEMATOCRIT 35.6 % (42.0-52.0)
[2024-01-23 06:45] LABS: COLLECTION METHOD CLEAN CATCH
[2024-01-23] MEDS ORDERED: LORazepam 2 MG/ML 1 ML VIAL IV ONE (06:45)
[2024-01-23 06:57] LABS: PH 5.5 (5.0-8.5); URINE APPEARANCE CLEAR (CLEAR/HAZY); URINE BLOOD 1+ (NEGATIVE); URINE COLOR YELLOW (YELLOW); URINE GLUCOSE NEGATIVE (NEGATIVE); URINE KETONE NEGATIVE (NEGATIVE); URINE NITRATE NEGATIVE (NEGATIVE); URINE PROTEIN(semi-quant) 1+ (NEGATIVE); URINE UROBILINOGEN 0.2 E.U/dL (0.2-1.0)
[2024-01-23 07:04] LABS: TRICYCLIC ANTIDEPRESS URINE NEGATIVE (NEGATIVE)
[2024-01-23] MEDS ORDERED: LORazepam 1 MG TAB PO PRN (08:30)
[2024-01-23] MEDS ORDERED: Acetaminophen 325 MG TAB PO PRN (08:30)
[2024-01-23] MEDS ORDERED: Mag/Al Hydrox/Simeth Susp 30 ML CUP PO PRN (08:30)
[2024-01-23] MEDS ORDERED: LORazepam 2 MG/ML 1 ML VIAL IV PRN (08:30)
[2024-01-23] MEDS ORDERED: Polyethylene Glycol 3350 17 GM PDS PO PRN (08:30)
[2024-01-23] MEDS ORDERED: Ondansetron 4 MG/2 ML VIAL IV PRN (08:30)
[2024-01-23] MEDS ORDERED: Docusate Sodium 100 MG CAP PO PRN (08:30)
[2024-01-23] MEDS ORDERED: Dextrose 50% Water 25 GM/50 ML SYRINGE IV PRN (08:45)
[2024-01-23] MEDS ORDERED: Dextrose (Glucose) 15 GM (4 x 3.75 GM) Chewable TABLET PACK PO PRN (08:45)
[2024-01-23] MEDS ORDERED: Glucagon 1 MG VIAL IM PRN (08:45)
[2024-01-23] MEDS ORDERED: Folic Acid 1 MG TAB PO SCH ×2 (09:00→16:48)
[2024-01-23] MEDS ORDERED: Insulin Lispro (HumaLOG) SQ SCH (12:00)
[2024-01-23] MEDS ORDERED: *Potassium Replacement Protocol MC SCH (12:15)
[2024-01-23] MEDS ORDERED: cefTRIAXone 1 G in Water For Injection,Sterile 10 ML IV SCH (12:15)
[2024-01-23] MEDS ORDERED: hydrALAZINE 20 MG/ML 1 ML VIAL IV PRN (12:15)
[2024-01-23] MEDS ORDERED: Potassium Bicarbonate/Citrate 20 MEQ Effervescent TAB PO SCH ×2 (12:15→19:00)
[2024-01-23] MEDS ORDERED: NS 1,000 ML IV SCH (12:15)
[2024-01-23 13:57] LABS: INR 0.9 (0.8-3.0); PROTHROMBIN TIME 10.1 SECONDS (9.7-12.8)
[2024-01-23 13:59] LABS: PARTIAL THROMBOPLASTIN TIME 32.3 SECONDS (26.0-37.0)
[2024-01-23] MEDS ORDERED: Magnesium Sulfate 4% 50 ML IV ONE (17:00)
[2024-01-23] MEDS ORDERED: Multivitamin TAB PO SCH (17:00)
--- NOTE | 2024-01-23 19:41 | NUR ---
PT DENIES NEEDS. VERBALIZES NO DISTRESS AT THIS TIME.
[2024-01-23] MEDS ORDERED: levETIRAcetam 500 MG TAB PO SCH (21:00)
[2024-01-24] VITALS (136 sets, daily range): BP systolic 138–175; BP diastolic 104–135; PULSE 93–123; TEMP 97.8–99.3; O2SAT 50–100
[2024-01-24] MEDS ORDERED: Metoprolol Tartrate 5 MG/5 ML VIAL IV ONE (04:30)
--- NOTE | 2024-01-24 05:37 | NUR ---
PATIENT REFUSED MORNING LABS. STATES HE WAS POKED SEVERAL TIMES ALREADY. PT DISCUSSED WITH THIS NURSE THAT HE NEEDS TO GO HOME TODAY. HE IS WORRIED ABOUT LOSING HIS JOB. PT REQUESTING A NOTE TO GIVE TO HIS JOB. METOPROLOL GIVEN, BP NOW 129/92, HR 90'S - 115. PT NOW HAVING OCCASIONAL PVC'S. STABLE ON ROUNDS. RESPIRATIONS EVEN AND UNLABORED. NO SIGN OF DISTRESS AT THIS TIME. NO SEIZURES NOTED OVERNIGHT. NO DT'S NOTED. CIWA SCORE 0. CONTINUE PLAN OF CARE
--- NOTE | 2024-01-24 08:20 | NUR ---
Patient alert and oriented, however very annoyed that this nurse needed to prick his finger for an accu check. Complained that everyone "has been poking me all night!) Allowed this nurse to perform a bedside assessment. Assessment WNL. BP elevated, and scheduled anti-hypertensive administered at this time. Call light left within reach and seizure pads in place.
[2024-01-24] MEDS ORDERED: Lisinopril 10 MG TAB PO SCH (09:00)
[2024-01-24 09:22] LABS: BASO # 0.1 K/mm3 (0.0-0.2); BASO % 0.6 % (0.0-2.0); EOS # 0.1 K/mm3 (0.0-0.7); GRAN # 6.2 K/mm3 (1.4-6.5); GRAN % 68.6 % (42.2-75.2); HEMATOCRIT 42.1 % (42.0-52.0); LYMPH # 1.5 K/mm3 (1.2-3.4); LYMPH % 17.1 % (20.0-51.0); MEAN CELL VOLUME 86 fl (80.0-100.0); MEAN CORPUSCULAR HEMOGLOBIN 29 pg (27-31); MEAN CORPUSCULAR HGB CONC 34 g/dl (33.0-37.0); MONO # 1.1 K/mm3 (0.1-0.6); MONO % 12.3 % (1.7-9.3); PLATELET COUNT 181 K/mm3 (130-400); REDCELL DISTRIBUTION WIDTH-CV 19.9 % (11.5-14.5)
[2024-01-24 09:24] LABS: HEMOGLOBIN 14.1 g/dl (13.5-18.0)
[2024-01-24 09:51] LABS: ALBUMIN 3.8 g/dL (3.5-5.0); CALCIUM 9.4 mg/dL (8.4-10.2); CREATININE, serum 0.89 mg/dL (0.72-1.25); POTASSIUM 4.2 mEq/L (3.5-4.5)
--- NOTE | 2024-01-24 10:28 | NUR ---
break off worker was notified by patient's nurse that patient was wanting to leave today. break off worker met with patient to discuss discharge planning. Patient lives in [place] still at [facility]. Patient has a DPOA-HC on file listing his brother, Shen, as primary and Galdino, son, as secondary. Patient stated that is still correct, Shen P# [phone], Galdino, P# [phone]. Patient reported he made an appointment at [facility] and it is on February 05. Pharmacy is [facility] [address], no issues affording medications but patient reports he does not have any money for the remainder of the month. Patient does not have insurance. DME is a cane and patient reports he has been able to get around well at home with the cane. Patient uses the [employer] bus for transportation around [place]. Patient reports his field nurse case manager asked that he speak with a doctor about getting a note/letter from a doctor stating he is unable work due to his seizures so he can get his food stamps reinstated. SW explained Dr. Agosto would be down to meet with him and he could ask if that is something she would be able to do. Patient understood. SW discussed patient being positive for marijuana and patient stated "all right, I'm not getting in trouble for it." SW reviewed the drug and alcohol list of options, patient understood. SW provided the AA meetings list, [facility] Resource Guide with information on the free meals and breadbasket as patient stated he does not have money, Mental Health Resources, [facility] information, [employer] and [employer]. Patient has no further questions for social service assistant. SW notified patient's nurse of the above information. Discharge plan: Home
--- NOTE | 2024-01-24 11:06 | NUR ---
fibreglass lay up worker attended interdisciplinary clinical rounding with Dr. Agosto. Patient was wanting to leave the hospital today but Dr. Agosto is recommending he stay in the hospital at least one more day for monitoring. Patient is agreeable to stay. Patient asked about the note regarding unable to work, Dr. Agosto explained that is something that he would need discuss with his primary care physician.
[2024-01-24] MEDS ORDERED: hydrALAZINE 10 MG TAB PO SCH (11:10)
--- NOTE | 2024-01-24 13:15 | NUR ---
Patient called nurse to say that he was "ready to leave now". Patient stated he had an appointment which he forgot about when he told the doctor he would stay this morning. Dr. Agosto notified and informed this nurse that he would have to leave AMA. AMA form was presented to patient and he agreed and signed the form. IV was removed and disconnected from all monitoring devices. Ekaterina, with social work was able to arrange transport with [facility] and patient left the facility at 1328. Alert and oriented and in no distress upon departure. Patient was being cooperative and thanked staff for helping him as he was leaving.
[2024-01-25] MEDS ORDERED: Thiamine 100 MG TAB PO SCH (09:00)
== END 2024-01-24 13:28 | disposition home or self-care (01) ==
LOC: COL.ER 05:07 → ICU 08:01
PROVIDERS: Emergency Medicine; ADMIT Hospitalist
DX: G40.909 Epilepsy, unspecified, not intractable, without status epilepticus (principal); I16.0 Hypertensive urgency; E87.6 Hypokalemia; E83.42 Hypomagnesemia; E87.20 Acidosis, unspecified; F15.90 Other stimulant use, unspecified, uncomplicated; E11.9 Type 2 diabetes mellitus without complications; F10.10 Alcohol abuse, uncomplicated; F17.200 Nicotine dependence, unspecified, uncomplicated; Y90.9 Presence of alcohol in blood, level not specified; Z79.899 Other long term (current) drug therapy
CPT/HCPCS: G0378; J0360; J0696; J1920; J2060; J3411; J3475; J7030; J7120

== ENCOUNTER 2024-02-13 02:25 | Inpatient (IN) | payer SELFPAY ==
[2024-02-13] VITALS (12 sets, daily range): BP systolic 85–175; BP diastolic 57–119; PULSE 73–102; TEMP 98.1–100.2
[~2024-02-13] VITALS: Ht 180.3 cm; Wt 70.4 kg
[2024-02-13] MEDS ORDERED: NS 1,000 ML IV ONE (03:15)
[2024-02-13 03:22] LABS: BASO % 0.8 % (0.0-2.0); EOS # 0.1 K/mm3 (0.0-0.7); EOS % 1.2 % (0.0-4.0); GRAN # 3.2 K/mm3 (1.4-6.5); GRAN % 61.7 % (42.2-75.2); HEMATOCRIT 35.5 % (42.0-52.0); HEMOGLOBIN 12.7 g/dl (13.5-18.0); LYMPH # 1.2 K/mm3 (1.2-3.4); LYMPH % 24.2 % (20.0-51.0); MEAN CELL VOLUME 84 fl (80.0-100.0); MEAN CORPUSCULAR HEMOGLOBIN 30 pg (27-31); MEAN CORPUSCULAR HGB CONC 36 g/dl (33.0-37.0); MEAN PLATELET VOLUME 11.3 fl (7.4-10.4); MONO # 0.6 K/mm3 (0.1-0.6); MONO % 11.7 % (1.7-9.3); PLATELET COUNT 138 K/mm3 (130-400); RED BLOOD COUNT 4.24 M/mm3 (4.20-5.60); REDCELL DISTRIBUTION WIDTH-CV 18.9 % (11.5-14.5)
[2024-02-13 03:38] LABS: ALBUMIN 3.9 g/dL (3.5-5.0); BILIRUBIN,TOTAL 0.7 mg/dL (0.2-1.2); CREATININE, serum 0.86 mg/dL (0.72-1.25); POTASSIUM 3.7 mEq/L (3.5-4.5); TOTAL PROTEIN 7.7 g/dl (6.2-8.1)
[2024-02-13] MEDS ORDERED: levETIRAcetam 1,000 MG in Syringe 1 EACH IV ONE (03:45)
[2024-02-13 04:03] LABS: COLLECTION METHOD CLEAN CATCH
[2024-02-13 04:11] LABS: URINE APPEARANCE CLOUDY (CLEAR/HAZY); URINE BLOOD 3+ (NEGATIVE); URINE COLOR YELLOW (YELLOW); URINE GLUCOSE NEGATIVE (NEGATIVE); URINE KETONE 1+ (NEGATIVE); URINE NITRATE NEGATIVE (NEGATIVE); URINE PROTEIN(semi-quant) 3+ (NEGATIVE)
[2024-02-13 04:18] LABS: TRICYCLIC ANTIDEPRESS URINE NEGATIVE (NEGATIVE)
[2024-02-13 04:25] LABS: URINE RBC 0-2 /hpf (0-2)
[2024-02-13 04:26] LABS: AMORPHOUS CRYSTAL PRESENT (NOT PRESENT); URINE BACTERIA OCCASIONAL /hpf (NONE SEEN)
[2024-02-13 05:00] LABS: PROLACTIN 25.8 ng/mL (3.46-19.40)
[2024-02-13] MEDS ORDERED: hydrALAZINE 20 MG/ML 1 ML VIAL IV PRN (05:45)
[2024-02-13] MEDS ORDERED: LORazepam 2 MG/ML 1 ML VIAL IV PRN (05:45)
[2024-02-13] MEDS ORDERED: Mag/Al Hydrox/Simeth Susp 30 ML CUP PO PRN (05:45)
[2024-02-13] MEDS ORDERED: LR 1,000 ML IV SCH (05:45)
[2024-02-13] MEDS ORDERED: Ondansetron 4 MG/2 ML VIAL IV PRN (05:45)
[2024-02-13] MEDS ORDERED: Acetaminophen 325 MG TAB PO PRN (05:45)
--- NOTE | 2024-02-13 06:08 | NUR ---
Patient arrive to room 308 at this time. Denies any pain at this time. Patient dry heaving upon arrival. NS infuisng to left AC, IV infiltrated. Water and apple juice provided, needs met. Assessment and med rec complete. Seizure pads in place. VS obtained. Oriented patient to room, call light, bathroom, and bed. Call light and personal items in reach. Bed in low position and bed alarm on.
[2024-02-13] MEDS ORDERED: Multivitamin TAB PO SCH (08:00)
--- NOTE | 2024-02-13 08:00 | NUR ---
Patient resting in bed with lights off. Alert and oriented x 4, states he has a headache. Tylenol was provided at 6. Assessment completed, oral meds given. IV access DC since it was infiltrated. IV access attempted but patient refuses. IV fluids on stand by. Pt tired of been awake all night, he asks for some time to rest. Right now resting in bed.
[2024-02-13] MEDS ORDERED: Folic Acid 1 MG TAB PO SCH (09:00)
[2024-02-13] MEDS ORDERED: levETIRAcetam 500 MG TAB PO SCH (09:00)
--- NOTE | 2024-02-13 10:50 | NUR ---
SW met with patient to complete initial assessment for discharge planning. Patient is <30 day readmission. Patient verified that he lives alone in [place], he lists his brother Best Zhu as DPOA ([phone]) and son Galdino Whitley ([phone]) as alternate DPOA. Patient is uninsured but had FAA completed at last admission two weeks ago. Patient did not establish with [facility] after last discharge. He states he uses [facility] pharmacy but states he did not get his medications after last discharge. Patient states he has had another seizure which brought him back to hospital. Patient states he has a cane and walker at home. Patient stating he needs a letter from physician to get his food stamps restarted. SW informed him that he was instructed at last discharge to establish with [facility] who will be able to provide letter. Patient informed by this SW that attending declined to write letter for him at last admission and insturcted him to establish with PCP. Patient provided with contact information again for [facility]. Discharge plan: Home
--- NOTE | 2024-02-13 12:09 | NUR ---
1150 - TRIED TO START A LINE ON TRAVELL, NO SUCCESS. HE HAD BEEN POKED NUMEROUS TIMES BY PRIOR NURSING STAFF AND WASN'T WILLING TO TRY AGAIN. CAN'T DO CAT SCAN WO A LINE. NURSE WILL CALL IV SERVICES AND LET CT KNOW WHEN HE GETS A LINE.
--- NOTE | 2024-02-13 15:21 | NUR ---
Patient do not has IV access and refuses to let this nurse, and other nurses to try. States he does not want us to poke him more than we already have. Call placed to DR. Lee to resport it. Aware. CT scan has been done without contrast.
[2024-02-13] MEDS ORDERED: levETIRAcetam 500 MG in Syringe 1 EACH IV SCH (15:32)
--- NOTE | 2024-02-13 18:23 | NUR ---
Patient now has an IV access. Getting fluids per orders. Continues complaining of mild headache and pain on his left side. Report will be given to night RN.
--- NOTE | 2024-02-13 18:43 | NUR ---
Patient complaining of pain 7/10 on LLQ. Reported to bryanna Mckenzie. He will add some other pain med.
[2024-02-13] MEDS ORDERED: oxyCODONE 5 MG TAB PO PRN (19:15)
--- NOTE | 2024-02-13 20:00 | NUR ---
PATIENT RESTING IN BED WATCHING TV. REPORTING 10/10 PAIN IN THE LEFT LOWER QUADRANT AND TONGUE. GAVE 5MG PO OXYCODONE. DISCONNECTED FROM IV AT THIS TIME TO ASSIST INTO SHOWER. ADVISED PATIENT TO CALL WHEN HE IS DONE IN SHOWER.
[2024-02-14] VITALS (9 sets, daily range): BP systolic 149–169; BP diastolic 101–121; PULSE 62–108; TEMP 97.7–98.4
--- NOTE | 2024-02-14 04:20 | NUR ---
PATIENT VERY FRUSTRATED WITH VITAL SIGN MONITORING AND MORNING LABS. CURSING AT STAFF.
[2024-02-14 04:58] LABS: BASO % 0.3 % (0.0-2.0); EOS % 0.3 % (0.0-4.0); GRAN # 4.5 K/mm3 (1.4-6.5); GRAN % 70.9 % (42.2-75.2); HEMOGLOBIN 12.7 g/dl (13.5-18.0); LYMPH % 16.3 % (20.0-51.0); MEAN CELL VOLUME 83 fl (80.0-100.0); MEAN CORPUSCULAR HEMOGLOBIN 30 pg (27-31); MEAN CORPUSCULAR HGB CONC 36 g/dl (33.0-37.0); MONO # 0.8 K/mm3 (0.1-0.6); MONO % 11.9 % (1.7-9.3); PLATELET COUNT 110 K/mm3 (130-400); RED BLOOD COUNT 4.27 M/mm3 (4.20-5.60); REDCELL DISTRIBUTION WIDTH-CV 17.7 % (11.5-14.5)
[2024-02-14 05:03] LABS: HEMATOCRIT 35.5 % (42.0-52.0)
[2024-02-14 05:17] LABS: ALBUMIN 3.5 g/dL (3.5-5.0); BILIRUBIN,TOTAL 1.1 mg/dL (0.2-1.2); CALCIUM 9.1 mg/dL (8.4-10.2); CREATININE, serum 0.82 mg/dL (0.72-1.25); MAGNESIUM 1.5 mg/dL (1.6-2.6); POTASSIUM 3.3 mEq/L (3.5-4.5); TOTAL PROTEIN 7.1 g/dl (6.2-8.1)
--- NOTE | 2024-02-14 05:24 | NUR ---
BEER MAKER CALLED AT 0506 FOR ALL LEADS OFF. WHEN RN CHECKED PATIENT, HE HAD REMOVED ALL LEADS AND TELE BOX FROM HIS GOWN. RN WAS ABLE TO GET PATIENT TO AGREE TO HAVING TELE MONITORING RESUMED.
--- NOTE | 2024-02-14 05:53 | NUR ---
PATIENT REFUSES 0600 VITALS. STATES "I'M SICK OF YOU GUYS WAKING ME UP AND POKING ME. ITS BULLSHIT" ATTEMPTED TO EDUCATE. STATES HE WILL LEAVE IF SOMEONE WAKES HIM UP AGAIN
--- NOTE | 2024-02-14 07:34 | NUR ---
Report received from KARLA Rogel. Patient sleeping, getting fluids per orders.
--- NOTE | 2024-02-14 08:00 | NUR ---
Patient resting in bed with the lights off. States he feels better than yesterday. Assessment completed, meds given, fluids going per orders. No further needs at this time. Call light within reach.
[2024-02-14] MEDS ORDERED: *Potassium Replacement Protocol MC SCH (09:00)
[2024-02-14] MEDS ORDERED: Lisinopril 10 MG TAB PO SCH (09:00)
[2024-02-14] MEDS ORDERED: Potassium Bicarbonate/Citrate 20 MEQ Effervescent TAB PO SCH (09:00)
[2024-02-14] MEDS ORDERED: Magnesium Sulfate 1 GM/100 ML IV Soln IV ONE (09:00)
--- NOTE | 2024-02-14 10:11 | NUR ---
Initial visit; Patient thanked Floor Grinder for looking in on him and offering Spiritual Care. Floor Grinder wished Travell well and will keep him in her prayers.
--- NOTE | 2024-02-14 10:39 | NUR ---
Patient refusing to let us monitor his VS.
[2024-02-14] MEDS ORDERED: Lisinopril 10 MG TAB PO ONE (15:29)
--- NOTE | 2024-02-14 16:00 | NUR ---
Patient disconected his IV fluids, removed his bus driver/monitor, and started walking in the halls asking for a Tshirt. Pt states he does not want to stay here more than one night more and started collecting all his belongings. Pt Pt came back to his room. This nurse restarted fluids, place back telemetry and provide scheduled meds. Pt started to say that the bed was moving up and downt by itself. Then he placed a piece of paper over the IV pumpt that connected with the right side of the upper rail on the bed to prove that the bed was moving up and down by itself. Explained that was not happening. Right now patient watching TV in bed. Continue monitoring.
--- NOTE | 2024-02-14 16:12 | NUR ---
flow worker attended interdisciplinary clinical rounding with Dr. Lee. Patient will need medication assistance as he is struggling to pay for his medications. SW contacted [facility] whom priced the amount of $35.39 for patient's lisinopril and Keppra. SW filled out the voucher to prepare for patient to discharge tomorrow. DEONTE will fax the voucher to [facility] along with scripts upon discharge.
[2024-02-14] MEDS ORDERED: hydrALAZINE 25 MG TAB PO SCH (17:00)
--- NOTE | 2024-02-14 18:13 | NUR ---
Call received from ENGINEER THIRD ASSISTANT stating patient is more alert and active in room. He asked to talk to this RN. Once with patient he states he wants to go home, educated about his condition and the risks of going home AMA. He asked to go. Call placed to Dr. Lee stating what patient wants and he states it is ok to get AMA signed. Pt signed AMA. IV access was discontinued, Telemetry was removed, security accompanied patient to the emergency entrance.
[2024-02-14] MEDS ORDERED: APRESOLINE 25MG25 MG PO (18:17)
[2024-02-14] MEDS ORDERED: THIAMINE 1100 MG/TAB PO (18:18)
[2024-02-14] MEDS ORDERED: KEPPRA1000 MG PO (18:19)
[2024-02-14] MEDS ORDERED: FOLIC ACID 11 MG/TA1 PO (18:19)
[2024-02-14] MEDS ORDERED: ZESTRIL 20MG TA20 MG PO (18:21)
[2024-02-14] MEDS ORDERED: LIPITOR20 MG PO (18:26)
[2024-02-15] MEDS ORDERED: Lisinopril 20 MG TAB PO SCH (09:00)
[2024-02-15] MEDS ORDERED: Thiamine 100 MG TAB PO SCH (09:00)
== END 2024-02-14 18:15 | disposition left against medical advice (07) | DRG 101 ==
LOC: COL.ER 02:25 → MEDICAL 05:33
PROVIDERS: Emergency Medicine; Physician Assistant; ADMIT Hospitalist
DX: G40.909 Epilepsy, unspecified, not intractable, without status epilepticus (principal); E87.20 Acidosis, unspecified; M62.82 Rhabdomyolysis; E87.6 Hypokalemia; T42.6X6A Underdosing of other antiepileptic and sedative-hypnotic drugs, initial encounter; I10 Essential (primary) hypertension; E83.42 Hypomagnesemia; S20.212A Contusion of left front wall of thorax, initial encounter; E11.9 Type 2 diabetes mellitus without complications; F10.20 Alcohol dependence, uncomplicated; Z53.29 Procedure and treatment not carried out because of patient's decision for other reasons; F17.210 Nicotine dependence, cigarettes, uncomplicated; Z91.148 Patient's other noncompliance with medication regimen for other reason
CPT/HCPCS: OP; J0360; J1953; J2060; J3411; J3475; J7030; J7120

== ENCOUNTER 2024-02-29 17:40 | Emergency (ER) | payer SELFPAY ==
[~2024-02-29] VITALS: Ht 180.3 cm; Wt 81.8 kg
[~2024-02-29 17:40] MED LIST changes: +APRESOLINE 25MG25 MG PO; +LIPITOR20 MG PO; +ZESTRIL 20MG TA20 MG PO
[2024-02-29 17:41] VITALS: TEMP 99.3
[2024-02-29] MEDS ORDERED: levETIRAcetam 1,000 MG in Syringe 1 EACH IV ONE (18:00)
[2024-02-29] MEDS ORDERED: NS 1,000 ML IV ONE (18:00)
[2024-02-29 18:07] LABS: BASO % 0.6 % (0.0-2.0); EOS # 0.1 K/mm3 (0.0-0.7); EOS % 1.9 % (0.0-4.0); GRAN # 1.9 K/mm3 (1.4-6.5); GRAN % 40.1 % (42.2-75.2); HEMOGLOBIN 10.9 g/dl (13.5-18.0); LYMPH % 43.1 % (20.0-51.0); MEAN CELL VOLUME 89 fl (80.0-100.0); MEAN CORPUSCULAR HEMOGLOBIN 30 pg (27-31); MEAN CORPUSCULAR HGB CONC 34 g/dl (33.0-37.0); MEAN PLATELET VOLUME 10.8 fl (7.4-10.4); MONO # 0.6 K/mm3 (0.1-0.6); MONO % 13.9 % (1.7-9.3); PLATELET COUNT 218 K/mm3 (130-400); RED BLOOD COUNT 3.63 M/mm3 (4.20-5.60); REDCELL DISTRIBUTION WIDTH-CV 18.9 % (11.5-14.5)
[2024-02-29 18:08] LABS: HEMATOCRIT 32.3 % (42.0-52.0)
[2024-02-29 18:29] LABS: ALANINE AMINOTRANSFERASE 56 U/L (0-55); ALBUMIN 3.6 g/dL (3.5-5.0); ALKALINE PHOSPHATASE 43 U/L (40-150); ANION GAP 19 mmol/L (7-16); AST,SGOT 96 U/L (5-34); BILIRUBIN,TOTAL 0.3 mg/dL (0.2-1.2); BLOOD UREA NITROGEN 8 mg/dL (9-21); CHLORIDE 106 mEq/L (98-107); CREATININE, serum 0.99 mg/dL (0.72-1.25); GLUCOSE 107 mg/dL (70-99); POTASSIUM 3.4 mEq/L (3.5-4.5); SODIUM 143 mEq/L (136-145); TOTAL PROTEIN 7.1 g/dl (6.2-8.1)
[2024-02-29 18:39] LABS: ALCOHOL(ethanol),MEDICAL < 10 mg/dL (0-10)
[2024-02-29 19:39] VITALS: BP 136/91; PULSE 84
== END 2024-02-29 19:38 | disposition home or self-care (01) ==
LOC: COL.ER 17:40
PROVIDERS: Physician Assistant
DX: G40.909 Epilepsy, unspecified, not intractable, without status epilepticus (principal)
CPT/HCPCS: J1953; J7030